=== PATIENT | male | born 1955 | race Caucasian/White ===

== ENCOUNTER 2016-05-01 14:35 | Inpatient (IN) | payer OTHER ==
--- NOTE | 2016-05-01 17:11 | PDOC ---
History of Present Illness - General Chief Complaint: Pain Stated Complaint: LOWER EXT BLOCKAGE, ADMIT (PCP SENT) Time Seen by Provider: 05/01/16 16:28 History Source: Patient Exam Limitations: No Limitations - History of Present Illness Initial Comments: 05/01/16 17:04 HPI: This 60 year old male with c/o lower extremeties weakness and "poor flow" to his legs comes to the ER on the referral from Dr. Rogers to be admitted for surgery? Chief Compliant:b.l le weakness PHM: PVD, FH: Pt has not recently traveled outside the country in the last 30 days. Pt has not been in contact with people who have traveled out of the country, in contact with people who have been ill with fever, n, v, d. SH: smoking use: + current every day smoker. illicit drug use: NONE alcohol use: NONE PSH: Home med use noted on JUN Allergies:nka Immunizations: PCP: dr. whitley Past History - Past Medical History Allergies/Adverse Reactions: Allergies Allergy/AdvReac Type Severity Reaction Status Date / Time No Known Allergies Allergy Verified 05/01/16 14:43 Home Medications: Ambulatory Orders Naproxen [Naprosyn -] 500 mg PO BID PRN #14 tablet 06/23/15 Oxycodone HCl/Acetaminophen [Percocet 10-325 mg Tablet -] 1 - 2 tab PO Q6H PRN 06/23/15 COPD: Yes - Surgical History Abdominal Surgery: Yes (HERNIA) - Psycho/Social/Smoking Cessation Hx Anxiety: No Suicidal Ideation: No Smoking History: Current every day smoker Number of Cigarettes Smoked Daily: 40 Information on smoking cessation initiated: No 'Breaking Loose' booklet given: 06/23/15 Hx Alcohol Use: No Drug/Substance Use Hx: No Substance Use Type: None Review of Systems - Review of Systems Able to Perform ROS?: Yes Comments:: 05/01/16 17:14 General statement: I have to be admitted for my left leg that is cool Hematology: neg history of bleeding/blood thinners Skin: Neg for lesions, rash, bruising. left leg cool to touch HEENT: Neg symptoms Respiratory: Neg SOB or difficulty in breathing Cardiac: Neg chest pain GI: Neg pain, n/v : Neg problems on voiding MS: Neg for joint pain/stiffness, no edema Neuro: Neg for LOC, weakness, Endocrine: Neg for excess thirst/hunger, cold/heat intolerance, excess sweating Allergies: Neg for allergies *Physical Exam - Vital Signs Last Vital Signs Temp Pulse Resp BP Pulse Ox 97.7 F 112 H 20 117/68 97 05/01/16 14:39 05/01/16 14:39 05/01/16 14:39 05/01/16 14:39 05/01/16 14:39 - Physical Exam Comments: 05/01/16 17:19 General Appearance: This thin 60 year old male is w/ c/o b/l le pain and cool to touch legs. V/S: hemodynamically stable, afebrile Skin: WNL of pt's skin color, no signs of pallor, mottling, cyanosis Head:symmetrical Eyes: EOM's intact, PERRLA Ears: denies pain Nose: patent Throat: lips, teeth, gums, tongue, buccal mucos pink and moist Lungs: Chest symmetry equal. Cap refill <3 seconds. Lung sounds clear Cardiac: PMI at R 4MCL space, pos S1 and S2, regular rate. Abdomen: Soft, round, nontender : Not observed Muscularskeletal: Gait steady, ambulated in to ER, no edema +PMS Neuro: AAOx3, cognitively intact, speech clear and appropriate. ED Treatment Course - LABORATORY CBC & Chemistry Diagram: 05/01/16 16:56 05/01/16 16:56 - RADIOLOGY Radiology Studies Ordered: Category Date Time Status CHEST PA & LAT [RAD] Stat Radiology 05/01/16 16:30 Ordered Medical Decision Making - Medical Decision Making 05/01/16 17:20 Patient was initially seen and examined. Patient is stating he was told to come down per Dr. Rogers for admission to have an angiogram tomorrow. He is complaining of left lower extremity coolness to his leg. Several times we have attempted to start his workup however the patient has been found outside having a cigarette. We explained that he cannot be going outside and he needs to remain inside while we can complete his workup. A/P Left leg poor flow 1. labs 2. ua 3. ekg 4. cxr 5 pt/ptt 6. speak with dr. rogers, vascular 7 admission 05/01/16 17:[address] rogers who is in hospital and see pt requesting a ct of left leg order placed. spoke with dr. whitley who asks to place pt under dr. bey for admission to med surg. *DC/Admit/Observation/Transfer Diagnosis at time of Disposition: Lower extremity pain, left - Discharge Dispostion Condition at time of disposition: Guarded Admit: Yes - Referrals Referrals: David Rogers MD [Primary Care Provider] -
[2016-05-01 17:21] LABS: INR 1.12 (0.82-1.09); PROTHROMBIN TIME (PATIENT) 12.3 SEC (9.98-11.88)
[2016-05-01 17:22] LABS: BASOPHIL 0.8 % (0-2.0); EOSINOPHIL 1.3 % (0-4.5); MCH 33.8 pg (25.7-33.7); MCHC 34.4 g/dl (32.0-35.9); MEAN CELL VOLUME 98.2 fl (80-96); MEAN PLT VOLUME 8.6 fl (7.5-11.1); NEUTROPHILS 60.7 % (42.8-82.8); PLATELET COUNT 274 K/MM3 (134-434); WHITE BLOOD COUNT 9.1 K/mm3 (4.0-10.0)
[2016-05-01 17:24] LABS: ACTIVATED PTT 32.8 SECONDS (26.9-34.4)
--- NOTE | 2016-05-01 17:41 | CONSULT ---
Consult - Alcohol/Substance Use Hx Alcohol Use: No - Smoking History Smoking history: Current every day smoker Aproximately how many cigarettes per day: 40 Home Medications - Allergies Allergies/Adverse Reactions: Allergies Allergy/AdvReac Type Severity Reaction Status Date / Time No Known Allergies Allergy Verified 05/01/16 14:43 - Home Medications Home Medications: Ambulatory Orders Naproxen [Naprosyn -] 500 mg PO BID PRN #14 tablet 06/23/15 Oxycodone HCl/Acetaminophen [Percocet 10-325 mg Tablet -] 1 - 2 tab PO Q6H PRN 06/23/15 Physical Exam Vital Signs: Vital Signs Temperature 97.7 F 05/01/16 14:39 Pulse Rate 112 H 05/01/16 14:39 Respiratory Rate 20 05/01/16 14:39 Blood Pressure 117/68 05/01/16 14:39 O2 Sat by Pulse Oximetry (%) 97 05/01/16 14:39 Assessment/Plan Vascular Surgery 60 year old male comes into office today with coolness in left leg. Outpt Ultrasound of his legs showed bilateral lower ext monophasic flow. Pt is a current smoker. Chief Compliant:gavin ribeiro PHM: PVD, FH: Pt has not recently traveled outside the country in the last 30 days. Pt has not been in contact with people who have traveled out of the country, in contact with people who have been ill with fever, n, v, d. SH: smoking use: + current every day smoker. illicit drug use: NONE alcohol use: NONE PSH: Home med use noted on JUN Allergies:nka Immunizations: PCP: dr. whitley Past History - Past Medical History Allergies/Adverse Reactions: Allergies Allergy/AdvReac Type Severity Reaction Status Date / Time No Known Allergies Allergy Verified 05/01/16 14:43 Home Medications: Ambulatory Orders Naproxen [Naprosyn -] 500 mg PO BID PRN #14 tablet 06/23/15 Oxycodone HCl/Acetaminophen [Percocet 10-325 mg Tablet -] 1 - 2 tab PO Q6H PRN 06/23/15 PE Head - NC/AT Lung - CTA Heart - RRR abd - soft,nt,nd ext - warm, pink, left leg warm, no palpable pulses. A/P Bilateral lower ext claudication 1. CTA of aorta, bilateral lower ext runoff 2. smoking cessation 3. will need angiogram in am. David Mednoza DO
[2016-05-01 17:43] LABS: ANION GAP 5 (8-16); BILIRUBIN,TOTAL 0.7 mg/dL (0.2-1.0); CALCIUM 8.8 mg/dL (8.5-10.1); CO2 30 mmol/L (21-32); CREATININE 0.9 mg/dL (0.7-1.3); GLUCOSE,RANDOM 107 mg/dL (74-106); SGOT/AST 16 U/L (15-37); SGPT/ALT 18 U/L (12-78); TOT PROT 6.9 g/dl (6.4-8.2)
[2016-05-01 17:44] LABS: ALK PHOS 85 U/L (45-117)
[2016-05-01 17:51] LABS: URINE APPEARANCE CLEAR; URINE BILIRUBIN NEGATIVE (NEGATIVE); URINE BLOOD NEGATIVE (NEGATIVE); URINE COLOR YELLOW; URINE GLUCOSE (UA) NEGATIVE (NEGATIVE); URINE KETONE TRACE (NEGATIVE); URINE LEUK ESTERASE NEGATIVE (NEGATIVE); URINE NITRITE NEGATIVE (NEGATIVE); URINE UROBILINOGEN NEGATIVE E.U./dl (0.2-1.0)
[2016-05-01 17:58] LABS: URINE PROTEIN 1+ (NEGATIVE)
[2016-05-01 18:10] LABS: URINE MUCUS RARE; URINE RBC 11 /hpf (0-3); URINE WBC 1 /hpf (3-5)
[2016-05-01] MEDS ORDERED: DOCUSATE SODIUM 100 MG CAPSULE (FP) PO PRN (18:57)
[2016-05-01] MEDS ORDERED: oxyCODONE HCL 5 MG TABLET PO PRN (18:57)
[2016-05-01] MEDS ORDERED: ALPRAZolam 2 MG TABLET PO PRN (18:58)
[2016-05-01] MEDS: HEPARIN NA (PORCINE) 5,000 UNITS/ML 1ML VIAL SQ SCH ×2 (22:11→22:12)
[2016-05-01] MEDS: NICOTINE 21 MG/24 HOURS TOPICAL PATCH TD SCH (22:11)
[2016-05-02] MEDS ORDERED: oxyCODONE HCL 5 MG TABLET ONE (03:34)
[2016-05-02] MEDS ORDERED: ALPRAZolam 2 MG TABLET ONE (03:34)
[2016-05-02 05:58] VITALS: BMI 12.8
--- NOTE | 2016-05-02 11:14 | HP ---
Admitting History and Physical - Primary Care Physician PCP: Wen Tompkins - Admission Chief Complaint: LEG WEAKNESS History of Present Illness: 60 Y/O MALE WITH PAD PREVIOUS RIGHT LOWER EXTREMITY ANGIO/CATH 2 YEARS AGO PRESENTS WITH LEFT LOWER EXTREMITY WEAKNESS AND PAIN. History Source: Patient - Past Medical History Cardiovascular: Yes: Other - Smoking History Smoking history: Current every day smoker Have you smoked in the past 12 months: Yes Aproximately how many cigarettes per day: 40 - Alcohol/Substance Use Hx Alcohol Use: No Home Medications - Allergies Allergies/Adverse Reactions: Allergies Allergy/AdvReac Type Severity Reaction Status Date / Time No Known Allergies Allergy Verified 05/01/16 14:43 - Home Medications Home Medications: Ambulatory Orders Naproxen [Naprosyn -] 500 mg PO BID PRN #14 tablet 06/23/15 Oxycodone HCl/Acetaminophen [Percocet 10-325 mg Tablet -] 1 - 2 tab PO Q6H PRN 06/23/15 Alprazolam [Xanax] 2 mg PO TID 05/02/16 Review of Systems - Review of Systems Constitutional: reports: No Symptoms Eyes: reports: No Symptoms HENT: reports: No Symptoms Neck: reports: No Symptoms Cardiovascular: reports: No Symptoms Respiratory: reports: No Symptoms Gastrointestinal: reports: No Symptoms Genitourinary: reports: No Symptoms Musculoskeletal: reports: Extremity Pain, Joint Pain, Muscle Pain Integumentary: reports: No Symptoms Neurological: reports: No Symptoms Endocrine: reports: No Symptoms Hematology/Lymphatic: reports: No Symptoms Psychiatric: reports: No Symptoms Physical Examination Vital Signs: Vital Signs Temperature 97.3 F L 05/02/16 08:25 Pulse Rate 77 05/02/16 08:25 Respiratory Rate 18 05/02/16 08:25 Blood Pressure 96/64 05/02/16 08:25 O2 Sat by Pulse Oximetry (%) 92 L 05/02/16 06:03 Constitutional: Yes: Mild Distress Eyes: Yes: WNL HENT: Yes: WNL Neck: Yes: WNL Cardiovascular: Yes: WNL Respiratory: Yes: WNL Gastrointestinal: Yes: WNL Musculoskeletal: Yes: Muscle Weakness Extremities: Yes: WNL Edema: No Peripheral Pulses WNL: Yes Integumentary: Yes: WNL Wound/Incision: Yes: Clean/Dry Neurological: Yes: WNL ...Motor Strength: WNL Psychiatric: Yes: WNL Problem List - Problems (1) Lower extremity pain, left Assessment/Plan: MEDICALLY CLEARED FOR ANGIOGRAM LEFT LOWER EXTREMITY WITH POSSIBLE CATHETERIZATION. HEPARIN IV PAIN CONTROL Code(s): M79.605 - PAIN IN LEFT LEG
[2016-05-02] MEDS: NICOTINE 21 MG/24 HOURS TOPICAL PATCH TD SCH (11:22)
[2016-05-02] MEDS: HEPARIN NA (PORCINE) 5,000 UNITS/ML 1ML VIAL SQ SCH ×2 (11:23→21:31)
--- NOTE | 2016-05-02 11:42 | CONSULT ---
Consult Consult Specialty:: PULM/CCM Referred by:: ADAM Reason for Consultation:: Active smoker / COPD - History of Present Illness Chief Complaint: Poor flow to my legs History of Present Illness: 60 M, with listed medical history. Smoker since the age of 11, normal amount is 3.5 PPD. More recently about 2.5 PPD. Did have a period years ago when he stopped for a little less than a year. Admitted via the ER due to vascular insufficiency in the LE. He denies CP or SOB. He does have symptoms consistent with chronic bronchitis, daily cough with scant/thick sputum. No travel history or sick contacts. No hemoptysis. NO chronic need for steroids or ABX. - History Source History Provided By: Patient Limitations to Obtaining History: No Limitations - Past Medical History Cardio/Vascular: Yes: Other Pulmonary: Yes: Bronchitis, COPD. No: Cancer, Previously Intubated, Pulmonary Embolus, Pulmonary Fibrosis, Sleep Apnea - Alcohol/Substance Use Hx Alcohol Use: No - Smoking History Smoking history: Current every day smoker Have you smoked in the past 12 months: Yes Aproximately how many cigarettes per day: 40 Home Medications - Allergies Allergies/Adverse Reactions: Allergies Allergy/AdvReac Type Severity Reaction Status Date / Time No Known Allergies Allergy Verified 05/01/16 14:43 - Home Medications Home Medications: Ambulatory Orders Naproxen [Naprosyn -] 500 mg PO BID PRN #14 tablet 06/23/15 Oxycodone HCl/Acetaminophen [Percocet 10-325 mg Tablet -] 1 - 2 tab PO Q6H PRN 06/23/15 Alprazolam [Xanax] 2 mg PO TID 05/02/16 Review of Systems - Review of Systems Constitutional: denies: Chills, Fever, Lethargy, Night Sweats, Unintentional Wgt. Loss Eyes: reports: No Symptoms HENT: reports: No Symptoms Neck: reports: No Symptoms Cardiovascular: denies: Chest Pain, Edema, Palpitations, Shortness of Breath Respiratory: denies: Cough, Hemoptysis, Snoring, SOB, SOB on Exertion, Wheezing Gastrointestinal: reports: No Symptoms Genitourinary: reports: No Symptoms Breasts: reports: No Symptoms Reported Musculoskeletal: reports: Extremity Pain, Muscle Cramps Integumentary: reports: No Symptoms Neurological: reports: No Symptoms Endocrine: reports: No Symptoms Hematology/Lymphatic: reports: No Symptoms Psychiatric: reports: No Symptoms Physical Exam Vital Signs: Vital Signs Temperature 97.3 F L 05/02/16 08:25 Pulse Rate 77 05/02/16 08:25 Respiratory Rate 18 05/02/16 08:25 Blood Pressure 96/64 05/02/16 08:25 O2 Sat by Pulse Oximetry (%) 92 L 05/02/16 06:03 Constitutional: Yes: No Distress, Thin Eyes: Yes: Conjunctiva Clear, EOM Intact HENT: Yes: Atraumatic, Normocephalic Neck: Yes: Supple, Trachea Midline Cardiovascular: Yes: Regular Rate and Rhythm Respiratory: Yes: CTA Bilaterally, Cough, Diminished. No: Accessory Muscle Use , Orthopnea, Rales, Rhonchi, SOB, SOB on Exertion, Stridor, Wheezes Gastrointestinal: Yes: Normal Bowel Sounds, Soft Renal/: Yes: WNL Musculoskeletal: Yes: WNL Extremities: Yes: WNL Edema: No Peripheral Pulses WNL: Yes Wound/Incision: Yes: Well Approximated Neurological: Yes: Alert, Oriented ...Motor Strength: WNL Psychiatric: Yes: WNL, Alert, Oriented Imaging - Results Chest X-ray: Report Reviewed, Image Reviewed (Hyperinflated) Problem List - Problems (1) Lower extremity pain, left Code(s): M79.605 - PAIN IN LEFT LEG (2) Bursitis of left elbow Code(s): M70.32 - OTHER BURSITIS OF ELBOW, LEFT ELBOW (3) COPD (chronic obstructive pulmonary disease) Code(s): J44.9 - CHRONIC OBSTRUCTIVE PULMONARY DISEASE, UNSPECIFIED (4) Chronic obstructive bronchitis without exacerbation Code(s): J44.9 - CHRONIC OBSTRUCTIVE PULMONARY DISEASE, UNSPECIFIED (5) Smoker Code(s): F17.200 - NICOTINE DEPENDENCE, UNSPECIFIED, UNCOMPLICATED (6) Malnutrition Code(s): E46 - UNSPECIFIED PROTEIN-CALORIE MALNUTRITION Assessment/Plan PLAN: Brovana BID Albuterol Nebs PRN O2 as needed Monitor off ABX and systemic steroids for now Smoking cessation discussed Outpatient PFTs Will follow There is no Pulmonary contraindication for OR. Thank you. Dr Del Angel
[2016-05-02] MEDS ORDERED: ALBUTEROL SO4 0.083% IH SOL 2.5 MG/3 ML VIAL.NEB. NEB PRN ×2 (11:48→16:37)
--- NOTE | 2016-05-02 11:51 | CON.CARD ---
Consult Consult Specialty:: Cardiology Referred by:: Dr. Murphy Reason for Consultation:: Pre-op cardiac evaluation for peripheral angiogram - History of Present Illness Chief Complaint: Right leg pain, PAD History of Present Illness: 60 yo male smoker with CAD (2 vessel disease per 01/20/12 cardiac cath at [place] -> no PCI was performed), PAD, who was admitted yesterday with reported cold left leg, weakness, and pain. He is currently pending lower extremity peripheral angiogram and intervention. Patient denies chest pain or dyspnea. 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 - History Source History Provided By: Patient Limitations to Obtaining History: No Limitations - Past Medical History Cardio/Vascular: Yes: CAD (2-vessel CAD per 01/20/12 cardiac cath at [place]) Pulmonary: Yes: Bronchitis, COPD. No: Cancer, Previously Intubated, Pulmonary Embolus, Pulmonary Fibrosis, Sleep Apnea - Alcohol/Substance Use Hx Alcohol Use: No - Smoking History Smoking history: Current every day smoker Have you smoked in the past 12 months: Yes Aproximately how many cigarettes per day: 40 Home Medications - Allergies Allergies/Adverse Reactions: Allergies Allergy/AdvReac Type Severity Reaction Status Date / Time No Known Allergies Allergy Verified 05/01/16 14:43 - Home Medications Home Medications: Ambulatory Orders Naproxen [Naprosyn -] 500 mg PO BID PRN #14 tablet 06/23/15 Oxycodone HCl/Acetaminophen [Percocet 10-325 mg Tablet -] 1 - 2 tab PO Q6H PRN 06/23/15 Alprazolam [Xanax] 2 mg PO TID 05/02/16 Vital Signs: Vital Signs Temperature 97.3 F L 05/02/16 08:25 Pulse Rate 77 05/02/16 08:25 Respiratory Rate 18 05/02/16 08:25 Blood Pressure 96/64 05/02/16 08:25 O2 Sat by Pulse Oximetry (%) 92 L 05/02/16 06:03 - Other Data Labs, Other Data: INR, PTT INR 1.12 (0.82-1.09) 05/01/16 16:56 05/02/16 ECG: Sinus rhythm, rate 80 bpm Prior Cardiac Procedures: Cardiac Catheterization (01/20/12 Cardiac catheterization (at [place]): 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 Admitted 05/01/16 with reported cold left leg, weakness, and pain. Currently pending lower extremity peripheral angiogram and intervention. Cardiology consulted for pre-op cardiac evaluation. RECS: Patient does not have any cardiac contraindications to pending peripheral angiography/intervention. Patient may proceed without further cardiac work-up. Will start aspirin 81 mg po daily and atorvastatin 20 mg po daily given known peripheral PAD and CAD. Will follow. Call with questions.
[2016-05-02] MEDS ORDERED: ARFORMOTEROL TARTRATE 15 MCG/2 ML VIAL NEB SCH (12:00)
[2016-05-02] MEDS ORDERED: LIDOCAINE HCL 1%, 10 MG/ML (20ML VIAL) ONE (12:33)
[2016-05-02] MEDS ORDERED: HEPARIN NA (PORCINE) 5,000 UNITS/ML 1ML VIAL ONE ×4 (12:33→15:13)
[2016-05-02] MEDS ORDERED: MIDAZOLAM HCL 2 MG/2 ML SINGLE DOSE VIAL ONE (13:02)
[2016-05-02] MEDS ORDERED: PROPOFOL 20 ML ONE ×2 (13:02)
[2016-05-02] MEDS ORDERED: ceFAZolin SODIUM 1 GM VIAL ONE (13:24)
[2016-05-02] MEDS ORDERED: ceFAZolin SODIUM 1 GM VIAL IVPB ONE (13:25)
[2016-05-02] MEDS ORDERED: ONDANSETRON 4 MG/2 ML VIAL IVPUSH PRN ×2 (13:44→16:37)
[2016-05-02] MEDS ORDERED: LACTATED RINGERS SOLUTION 1,000 ML IV SCH (13:45)
[2016-05-02] MEDS ORDERED: LIDOCAINE HCL 1%, 10 MG/ML (50 mL VIAL) IJ ONE ×3 (13:47)
--- NOTE | 2016-05-02 15:29 | EKG ---
Test Reason : Blood Pressure : / mmHG Vent. Rate : 080 BPM Atrial Rate : 080 BPM P-R Int : 180 ms QRS Dur : 096 ms QT Int : 388 ms P-R-T Axes : 078 086 083 degrees QTc Int : 447 ms NORMAL SINUS RHYTHM NORMAL ECG WHEN COMPARED WITH ECG OF 01-MAY-2016 17:15, CRITERIA FOR ANTERIOR INFARCT ARE NO LONGER PRESENT CRITERIA FOR ANTEROLATERAL INFARCT ARE NO LONGER PRESENT Confirmed by ALEX HERNANDEZ, BRANDAN ([id number]) on 05/02/2016 3:29:02 PM Referred By: CHAVO MONTENEGRO Confirmed By:BRANDAN JOHNSON MD
--- NOTE | 2016-05-02 16:03 | OP ---
Operative Note - Note: Operative Date: 05/02/16 Pre-Operative Diagnosis: Left lower extremity rest pain Operation: Aortogram, LLE angiogram, iliac artery angioplasty, SFA angioplasty with stent placement. Findings: Left iliac artery stent occluded Post-Operative Diagnosis: Same as Pre-op Surgeon: David Mendoza Anesthesia: Fractional Estimated Blood Loss (mls): 75 Operative Report Dictated: Yes
[2016-05-02] MEDS ORDERED: oxyCODONE HCL 5 MG TABLET PO PRN (16:37)
[2016-05-02] MEDS ORDERED: DOCUSATE SODIUM 100 MG CAPSULE (FP) PO PRN (16:37)
[2016-05-02] MEDS ORDERED: CLOPIDOGREL BISULFATE 75 MG TABLET (FP) ONE (16:43)
[2016-05-02] MEDS: CLOPIDOGREL BISULFATE 75 MG TABLET (FP) PO SCH (16:46)
--- NOTE | 2016-05-02 16:54 | EKG ---
Test Reason : Blood Pressure : / mmHG Vent. Rate : 098 BPM Atrial Rate : 098 BPM P-R Int : 200 ms QRS Dur : 082 ms QT Int : 350 ms P-R-T Axes : 082 098 080 degrees QTc Int : 446 ms NORMAL SINUS RHYTHM ANTEROLATERAL INFARCT , AGE UNDETERMINED ABNORMAL ECG NO PREVIOUS ECGS AVAILABLE Confirmed by BRANDAN JOHNSON MD ([id number]) on 05/02/2016 4:54:04 PM Referred By: Confirmed By:BRANDAN JOHNSON MD
[2016-05-02] MEDS: LACTATED RINGERS SOLUTION 1,000 ML IV SCH (17:20)
[2016-05-02] MEDS ORDERED: oxyCODONE HCL 5 MG TABLET PO ONE (18:18)
[2016-05-02] MEDS ORDERED: morphine CARPU-JECT 4 MG/1 ML DISP.SYRIN IVPB PRN (20:52)
[2016-05-02] MEDS: ALPRAZolam 2 MG TABLET PO PRN (21:30)
[2016-05-02] MEDS: ARFORMOTEROL TARTRATE 15 MCG/2 ML VIAL NEB SCH (21:43)
[2016-05-02] MEDS ORDERED: ATORVASTATIN CA 20 MG TABLET (FP) PO SCH ×2 (22:00)
[2016-05-03] MEDS: LACTATED RINGERS SOLUTION 1,000 ML IV SCH (05:56)
[2016-05-03 09:09] LABS: CHOLESTEROL 141 mg/dL (50-200); LDL CHOLESTEROL (ONLY SJRH) 73 mg/dL (5-100)
[2016-05-03] MEDS: ARFORMOTEROL TARTRATE 15 MCG/2 ML VIAL NEB SCH (09:31)
[2016-05-03] MEDS ORDERED: PT OWN MED DRAWER 7, Y5N ONE (09:35)
[2016-05-03] MEDS: HEPARIN NA (PORCINE) 5,000 UNITS/ML 1ML VIAL SQ SCH (09:43)
[2016-05-03] MEDS: CLOPIDOGREL BISULFATE 75 MG TABLET (FP) PO SCH (09:43)
[2016-05-03] MEDS: ALPRAZolam 2 MG TABLET PO PRN (09:52)
[2016-05-03] MEDS ORDERED: NICOTINE 21 MG/24 HOURS TOPICAL PATCH TD SCH ×2 (10:00→11:15)
[2016-05-03] MEDS ORDERED: ASPIRIN COATED 81 MG TABLET.EC PO SCH ×2 (10:00)
[2016-05-03 10:31] VITALS: BP 85/66; PULSE 101; TEMP 97.4
--- NOTE | 2016-05-03 10:50 | PN ---
Progress Note, Physician - Objective Vital Signs: Vital Signs Temperature 97.4 F L 05/03/16 09:20 Pulse Rate 101 H 05/03/16 09:20 Respiratory Rate 20 05/03/16 09:20 Blood Pressure 85/66 05/03/16 09:20 O2 Sat by Pulse Oximetry (%) 92 L 05/03/16 09:20 Cardiovascular: Yes: Regular Rate and Rhythm, S1, S2 Respiratory: Yes: CTA Bilaterally Gastrointestinal: Yes: Normal Bowel Sounds, Soft Edema: No Labs: INR, PTT INR 1.12 (0.82-1.09) 05/01/16 16:56 Problem List - Problems (1) Arterial insufficiency Code(s): I77.1 - STRICTURE OF ARTERY (2) COPD (chronic obstructive pulmonary disease) Code(s): J44.9 - CHRONIC OBSTRUCTIVE PULMONARY DISEASE, UNSPECIFIED (3) Lower extremity pain, left Code(s): M79.605 - PAIN IN LEFT LEG (4) Smoker Code(s): F17.200 - NICOTINE DEPENDENCE, UNSPECIFIED, UNCOMPLICATED Assessment/Plan (1) Lower extremity pain, left Assessment/Plan: MEDICALLY CLEARED FOR ANGIOGRAM LEFT LOWER EXTREMITY WITH POSSIBLE CATHETERIZATION. HEPARIN IV PAIN CONTROL Code(s): M79.605 - PAIN IN LEFT LEG PATIENT DISCHARGED PER VASC SURG PLEASE REFER TO 05/12 DISCHARGE NOTE PASTOR SHEPHERD
[2016-05-03] MEDS ORDERED: ALPRAZolam 2 MG TABLET PO SCH (14:00)
--- NOTE | 2016-05-12 13:09 | DS ---
Physical Examination Vital Signs: Vital Signs Temperature 97.4 F L 05/03/16 09:20 Pulse Rate 101 H 05/03/16 09:20 Respiratory Rate 20 05/03/16 09:20 Blood Pressure 85/66 05/03/16 09:20 O2 Sat by Pulse Oximetry (%) 92 L 05/03/16 09:20 Cardiovascular: Yes: Regular Rate and Rhythm, S1, S2 Respiratory: Yes: CTA Bilaterally Gastrointestinal: Yes: Normal Bowel Sounds, Soft Edema: No Discharge Summary Reason For Visit: LOWER EXTREMITY PAIN, LEFT Hospital Course: DISCHARGE NOTE INTENDED FOR 05/03/16 (1) Lower extremity pain, left Assessment/Plan: APPRECIATE VASC SURG OP NOTE Operative Date: 05/02/16 Pre-Operative Diagnosis: Left lower extremity rest pain Operation: Aortogram, LLE angiogram, iliac artery angioplasty, SFA angioplasty with stent placement. 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
--- NOTE | 2016-05-22 14:02 | OP ---
DATE OF OPERATION: 05/02/2016 PREOPERATIVE DIAGNOSIS: Left lower extremity rest pain. POSTOPERATIVE DIAGNOSIS: Left lower extremity rest pain. PROCEDURE: Aortogram, left lower extremity angiogram, iliac artery angioplasty, superficial femoral artery angioplasty with stent placement. FINDINGS: Left iliac artery stent was occluded. SURGEON: David Pinto MD ANESTHESIA: Fractional. BLOOD LOSS: 75 mL. INDICATIONS: The patient is a 60-year-old male who comes in with left lower extremity rest pain. He has a history of having a left iliac stent placed at [facility]. He now comes in when he had preoperative ultrasound performed showing that the iliac stent was occluded. He had an angiogram with us in the past from the left common femoral artery approach where he had an SFA stenosis there, and now comes back to the operating room after we finished that procedure complaining of some numbness in the leg. We are thinking that the left iliac stent that we just ballooned is now closed, and that he might need to have it re-ballooned, and the SFA stenosis might need to be addressed. Patient was consented for the procedure understanding all risks, benefits, and alternatives and then taken to the operating room. PROCEDURE IN DETAIL: Once in the operating suite, he was placed on the operating table in the supine manner, and the area of the right and left groin were prepped and draped in the sterile surgical manner. Under ultrasound guidance, we were able to visualize the right common femoral vein. Under pulsatile guidance, we visualized the right common femoral artery and 10 mL of 0.5% lidocaine was injected over the artery. We then took a micropuncture needle and punctured the right common femoral artery. A micropuncture wire inserted, and a short 5-Welsh sheath was inserted. We then placed a 0.035 floppy guidewire up into the aorta followed by an Omni Flush catheter. We then shot an angiogram of the aorta. The then shot an aortogram by hand injection which showed that the proximal iliac artery stent was indeed occluded. We then placed a 0.035 stiff guidewire. We were able to negotiate across the stent, and we were able to place a wire in the left common femoral artery. We were able to follow with the Omni Flush catheter. We then shot an angiogram of the left lower extremity showing that there was an SFA stenosis of about 85% in the proximal SFA that was causing his symptoms. At this point, we placed a 0.035 stiff guidewire across the lesion. We brought a 6 x 45 sheath up and over, 5000 units of IV heparin were administered to the patient. We then went ahead and placed a 6 x 4 stent in the SFA, which was ballooned in place using a 5 x [address] out, once that was ballooned and stented, we shot an angiogram of the left lower extremity, and the SFA was now patent. At this point, we now brought our sheath up and over, and we went ahead and used an 8 x 8 balloon and performed angioplasty of the proximal iliac artery stent. Completion angiogram now showed that this proximal stent was patent. Patient instantly felt that the numbness that he had in his left leg was now relived, and the foot was nice and pink. At this point, we brought our sheath up and over, and StarClose device was successfully deployed in the right common femoral artery. Pressure was held for 5 minutes, and there was no bleeding. The area was wet and dried, and Dermabond was placed. The patient tolerated the procedure with no complications. Patient transferred to PACU in stable condition. DAVID PINTO DO [id number]
--- NOTE | 2016-05-31 15:55 | OP ---
DATE OF OPERATION: 05/02/2016 PREOPERATIVE DIAGNOSIS: Left lower extremity rest pain. POSTOPERATIVE DIAGNOSIS: Left lower extremity rest pain. PROCEDURE: Aortogram, left lower extremity angiogram, iliac artery angioplasty, superior mesenteric artery angioplasty with stent placement. FINDINGS: Left iliac artery stent was occluded, proximal SFA severe stenosis. SURGEON: David Pinto MD ANESTHESIA: Fractional. BLOOD LOSS: 75 mL. INDICATIONS: The patient is a 60-year-old male who comes in with left lower extremity pain. He had a stent placed [facility] in the past, and now is occluded. He also has some disease in his SFA. Patient was consented for the procedure understanding all risks, benefits, and alternatives. He was then taken to the operating room. PROCEDURE IN DETAIL: Once in the operating suite, he was placed on the operating table in the supine manner, and the area of the right and left groin were prepped and draped in the sterile surgical manner. We then, under ultrasound guidance, visualized the right common femoral artery, and 10 mL of 0.5% lidocaine was injected there. We then went ahead and punctured the right common femoral artery using our micropuncture needle. A micropuncture wire was placed, and a traditional 5-Persian sheath was placed. We then placed a 0.035 floppy guidewire up into the aorta followed by an Omni Flush catheter. We then shot an angiogram showing that the left common iliac artery stent was occluded. We then placed a 0.035 stiff guidewire into the stent followed by our Omni Flush catheter, and sent the catheter and the wire down to the left common femoral artery. We then shot an angiogram of the left lower extremity showing that the common femoral artery was patent, profunda was patent, but proximal SFA had a 75% to 80% stenosis. The rest of the SFA was patent. The popliteal artery was patent. At this point, we placed a 0.035 stiff guidewire through our the lesion. We took out our Omni Flush catheter, placed a 6 x 45 crossover sheath up and over. We then went ahead and placed a 6 x 4 Bard stent into the SFA, which was ballooned in place using a 6 x [address] out, we brought our crossover sheath up and over. We then went ahead and used an 8 x 8 [place] balloon and performed angioplasty of the proximal left common iliac artery stent. Completion angiogram now showed that the aorta was patent along with the left common iliac artery stent. At this point, we brought our sheath back down and took it out, and StarClose device was successfully deployed in the right common femoral artery. Pressure was held for 5 minutes, and there was no bleeding. The area was wet and dried, and Dermabond was placed. The patient tolerated the procedure with no complications. Patient transferred to PACU in stable condition. DAVID PINTO DO [id number]
== END 2016-05-03 10:25 | disposition home or self-care (01) | DRG 173 ==
LOC: JER 14:35 → JERBED 17:38 → UNDOADMIN 17:38 → JERBED 18:54 → J6S 05-02 05:33
PROVIDERS: ADMIT Family Medicine; ATTEND Family Medicine
PROC: 047Y3ZZ Dilation of Lower Artery, Percutaneous Approach (ICD-10-PCS; 2016-05-02)
PROC: 3E06317 Introduction of Other Thrombolytic into Central Artery, Percutaneous Approach (ICD-10-PCS; 2016-05-02)
PROC: 047L3DZ Dilation of Left Femoral Artery with Intraluminal Device, Percutaneous Approach (ICD-10-PCS; principal; 2016-05-02 12:00)
DX: T82.856A Stenosis of peripheral vascular stent, initial encounter (principal); I73.9 Peripheral vascular disease, unspecified; Y83.8 Other surgical procedures as the cause of abnormal reaction of the patient, or of later complication, without mention of misadventure at the time of the procedure; J44.9 Chronic obstructive pulmonary disease, unspecified; F17.210 Nicotine dependence, cigarettes, uncomplicated; E46 Unspecified protein-calorie malnutrition; Z68.1 Body mass index [BMI] 19.9 or less, adult; I25.10 Atherosclerotic heart disease of native coronary artery without angina pectoris
CPT/HCPCS: 36415; 71020-TC; 75635-TC; 76000-TC; 80053; 80061; 81003; 81015; 83721; 85025; 85610; 85730; 93005; 93010; 94640; 94760; 99283-25; G0463-25; J1644

== ENCOUNTER 2016-05-09 09:51 | Day surgery (SDC) | payer OTHER ==
[2016-05-09 10:15] VITALS: BMI 14.8
[2016-05-09 10:57] LABS: BASOPHIL 0.8 % (0-2.0); EOSINOPHIL 1.5 % (0-4.5); MCHC 34.7 g/dl (32.0-35.9); MEAN CELL VOLUME 97.9 fl (80-96); MEAN PLT VOLUME 7.8 fl (7.5-11.1); NEUTROPHILS 65.9 % (42.8-82.8); PLATELET COUNT 247 K/MM3 (134-434); RDW 13.9 % (11.9-15.9); WHITE BLOOD COUNT 6.7 K/mm3 (4.0-10.0)
[2016-05-09 11:08] LABS: INR 1.12 (0.82-1.09); PROTHROMBIN TIME (PATIENT) 12.4 SEC (9.98-11.88)
[2016-05-09 11:24] LABS: ALBUMIN 3.4 g/dl (3.4-5.0); ANION GAP 7 (8-16); BILIRUBIN,TOTAL 0.4 mg/dL (0.2-1.0); CO2 30 mmol/L (21-32); CREATININE 0.7 mg/dL (0.7-1.3); GLUCOSE,RANDOM 87 mg/dL (74-106); SGOT/AST 14 U/L (15-37); SGPT/ALT 15 U/L (12-78); TOT PROT 6.1 g/dl (6.4-8.2)
[2016-05-09 11:25] LABS: ALK PHOS 78 U/L (45-117)
--- NOTE | 2016-05-09 11:30 | PDOC ---
History of Present Illness - General Chief Complaint: Revisit,Radiology Variance Stated Complaint: PRE-OP (PCP SENT) NEEDS ANGIOGRAM, LT LEG NUMBNESS Time Seen by Provider: 05/09/16 10:20 History Source: Patient Exam Limitations: No Limitations - History of Present Illness Initial Comments: 05/09/16 11:00 60-year-old male sent to the emergency room by Dr. Mendoza for evaluation of arterial occlusion. Patient had a stent placed to his left leg last week by Dr. Mendoza and went today to the clinic for evaluation and had no palpable pulses although extremity was warm. Patient denies leg pain presently but states tingling throbbing pain to his toes have occurred intermittently when he sits or lays down to long. Patient denies any skin discoloration, calf tenderness, shortness of breath, palpitations or chest pain. Patient states is a heavy smoker and although he was told by Dr. Mendoza not to smoke following the procedure patient continued to smoke. Timing/Duration: unsure Severity: moderate Associated Symptoms: reports: denies symptoms Past History - Past Medical History Allergies/Adverse Reactions: Allergies Allergy/AdvReac Type Severity Reaction Status Date / Time No Known Allergies Allergy Verified 05/09/16 10:10 Home Medications: Ambulatory Orders Oxycodone HCl/Acetaminophen [Percocet 10-325 mg Tablet] 1 - 2 tab PO Q6H PRN 02/27 Alprazolam [Xanax] 2 mg PO TID 05/02/16 Aspirin Coated [Ecotrin -] 81 mg PO DAILY tablet.ec 05/03/16 Atorvastatin Ca [Lipitor] 20 mg PO HS #30 tablet 05/03/16 Clopidogrel Bisulfate [Plavix -] 75 mg PO DAILY #30 tablet 05/03/16 COPD: Yes - Surgical History Abdominal Surgery: Yes (HERNIA) - Psycho/Social/Smoking Cessation Hx Anxiety: No Suicidal Ideation: No Smoking History: Former smoker (quit today) Have you smoked in the past 12 months: No Number of Cigarettes Smoked Daily: 40 Information on smoking cessation initiated: No 'Breaking Loose' booklet given: 05/02/16 Hx Alcohol Use: No Drug/Substance Use Hx: No Substance Use Type: None Hx Substance Use Treatment: No Patient Lives Alone: Yes Lives with/in: lives alone Review of Systems - Review of Systems Able to Perform ROS?: Yes Constitutional: No: Symptoms Reported HEENTM: No: Symptoms Reported Respiratory: No: Symptoms reported Cardiac (ROS): No: Symptoms Reported ABD/GI: No: Symptoms Reported : No: Symptoms Reported Musculoskeletal: No: Symptoms Reported Integumentary: No: Symptoms Reported Neurological: Yes: Tingling (lt foot) Hematologic/Lymphatic: Yes: See HPI *Physical Exam - Vital Signs Last Vital Signs Temp Pulse Resp BP Pulse Ox 98.5 F 97 H 20 93/55 96 05/09/16 10:10 05/09/16 10:55 05/09/16 10:10 05/09/16 10:10 05/09/16 10:55 - Physical Exam General Appearance: Yes: Nourished, Appropriately Dressed. No: Apparent Distress HEENT: positive: EOMI, DAVID. negative: Pale Conjunctivae Neck: positive: Supple Respiratory/Chest: positive: Lungs Clear, Normal Breath Sounds. negative: Respiratory Distress, Accessory Muscle Use Cardiovascular: positive: Regular Rhythm, Tachycardia. negative: Murmur Vascular Pulses: Doralis-Pedis (L): 0 (and post tibial) Gastrointestinal/Abdominal: negative: Soft, Tenderness Extremity: positive: Normal Capillary Refill, Normal Inspection, Normal Range of Motion. negative: Tender, Pedal Edema, Calf Tenderness Integumentary: positive: Dry, Warm, Ecchymosis (to anterior lt tibia (midshaft)) Neurologic: positive: Normal Mood/Affect (anxious), Motor Strength 5/5 ( ambulatory) Heart Score/ECG Review - ECG Intrepretation Rhythm: Regular Rhythm (rate 85, no acute findings) ED Treatment Course - LABORATORY CBC & Chemistry Diagram: 05/09/16 10:49 05/09/16 10:49 - ADDITIONAL ORDERS Additional order review: Laboratory Results 05/09/16 10:49 INR 1.12 05/09/16 10:49 RBC 3.63 L D MCV 97.9 H MCHC 34.7 RDW 13.9 MPV 7.8 Neutrophils % 65.9 Lymphocytes % 22.5 Monocytes % 9.3 Eosinophils % 1.5 Basophils % 0.8 - RADIOLOGY Radiology Studies Ordered: Category Date Time Status CHEST X-RAY PORTABLE* [RAD] Stat Radiology 05/09/16 10:42 Completed Medical Decision Making - Medical Decision Making 05/09/16 11:00 Pt here for evaluation of arterial occlusion after having a stent done at Dr. Mendoza and sent here for evaluation likely need an angiogram. I was unable to palpate pedal and posttibial pulses although the extremity was warm and pink. Patient was also noted to have slight tachycardia with oxygen levels ranging anywhere from 90-92 on room air. Patient states has history of COPD and history of anxiety which he did not take his Xanax this morning since he was told to be nothing by mouth. Patient will have labs including preop labs and d-dimer. Patient also given 2 L of oxygen. Patient otherwise comfortable. 05/09/16 12:15 CXR shows no significant findings or acute lung disease. Noted emphysema due to increased interstitial markings and hyperaeration. 05/09/16 13:54 Laboratory Tests 05/09/16 05/09/16 05/09/16 10:49 10:49 10:49 WBC 6.7 Hgb 12.4 D Hct 35.6 D Plt Count 247 Neutrophils % 65.9 INR 1.12 D-Dimer Sodium 135 L Potassium 4.1 Chloride 98 Carbon Dioxide 30 Anion Gap 7 L BUN 8 D Random Glucose 87 Calcium 8.0 L AST 14 L ALT 15 Blood Type 05/09/16 05/09/16 10:49 10:49 WBC Hgb Hct Plt Count Neutrophils % INR D-Dimer 285 H Sodium Potassium Chloride Carbon Dioxide Anion Gap BUN Random Glucose Calcium AST ALT Blood Type B POSITIVE patient ordered for D51/2 ns at 75 mL an hour. Patient also requesting something for his chronic back pain. Patient will be given IV morphine. Attempted to contact Dr. Mendoza to determine ETA for surgery since patient is requiring an angiogram. *DC/Admit/Observation/Transfer Diagnosis at time of Disposition: Arterial insufficiency - Discharge Dispostion Admit: Yes - Referrals Referrals: Tom Butler MD [Primary Care Provider] -
[2016-05-09] MEDS ORDERED: SODIUM CHLORIDE 1,000 ML IV STA (12:14)
[2016-05-09] MEDS ORDERED: morphine CARPU-JECT 2 MG/1 ML DISP.SYRIN IVPUSH ONE (12:55)
[2016-05-09] MEDS ORDERED: DEXTROSE 5%-0.45% SALINE 1,000 ML IV SCH (13:00)
[2016-05-09] MEDS ORDERED: morphine CARPU-JECT 4 MG/1 ML DISP.SYRIN ONE (13:02)
--- NOTE | 2016-05-09 14:10 | EKG ---
Test Reason : Blood Pressure : / mmHG Vent. Rate : 085 BPM Atrial Rate : 085 BPM P-R Int : 160 ms QRS Dur : 084 ms QT Int : 374 ms P-R-T Axes : 079 081 082 degrees QTc Int : 445 ms NORMAL SINUS RHYTHM NORMAL ECG WHEN COMPARED WITH ECG OF 02-MAY-2016 11:29, NO SIGNIFICANT CHANGE WAS FOUND Confirmed by BRANDAN JOHNSON MD ([id number]) on 05/09/2016 2:10:29 PM Referred By: Confirmed By:BRANDAN JOHNSON MD
[2016-05-09] MEDS ORDERED: HEPARIN NA (PORCINE) 5,000 UNITS/ML 1ML VIAL ONE ×3 (14:29→16:44)
[2016-05-09] MEDS ORDERED: LIDOCAINE HCL 1%, 10 MG/ML (20ML VIAL) ONE (14:29)
[2016-05-09] MEDS ORDERED: MIDAZOLAM HCL 2 MG/2 ML SINGLE DOSE VIAL ONE ×2 (15:27→15:36)
[2016-05-09] MEDS ORDERED: PROPOFOL 20 ML ONE (15:41)
[2016-05-09] MEDS ORDERED: ceFAZolin SODIUM 1 GM VIAL ONE (15:45)
[2016-05-09] MEDS ORDERED: PROTAMINE SULFATE 50 MG/5 ML VIAL ONE (17:05)
[2016-05-09] MEDS ORDERED: PROMETHAZINE HCL 25 MG/1 ML VIAL IVPUSH PRN (17:23)
[2016-05-09] MEDS ORDERED: ONDANSETRON 4 MG/2 ML VIAL IVPUSH PRN (17:23)
[2016-05-09] MEDS ORDERED: SODIUM CHLORIDE 1,000 ML IV SCH (17:30)
--- NOTE | 2016-05-09 18:50 | OP ---
Operative Note - Note: Operative Date: 05/09/16 Pre-Operative Diagnosis: Left lower extremity iliac artery angioplasty with stent placement Operation: Aortogram, Left common iliac artery angioplasty with stent placement Findings: left common iliac artery stent occlusion Post-Operative Diagnosis: Same as Pre-op Surgeon: David Mendoza Anesthesia: Fractional Estimated Blood Loss (mls): 75 Operative Report Dictated: Yes
[2016-05-09] MEDS ORDERED: CLOPIDOGREL BISULFATE 75 MG TABLET (FP) ONE (19:08)
[2016-05-09] MEDS: CLOPIDOGREL BISULFATE 75 MG TABLET (FP) PO SCH (19:10)
[2016-05-09] MEDS ORDERED: ONDANSETRON 4 MG/2 ML VIAL ONE (19:21)
[2016-05-09] MEDS: ALPRAZolam 2 MG TABLET PO PRN (20:40)
[2016-05-10 08:57] VITALS: BP 97/66; PULSE 94; TEMP 97.9
[2016-05-10] MEDS: CLOPIDOGREL BISULFATE 75 MG TABLET (FP) PO SCH (09:44)
[2016-05-10] MEDS: ALPRAZolam 2 MG TABLET PO PRN (09:45)
--- NOTE | 2016-05-10 11:21 | HP ---
Admitting History and Physical - Primary Care Physician PCP: Tom Butler - Admission Chief Complaint: PVD History Source: Patient, Medical Record Limitations to Obtaining History: No Limitations - Past Medical History Cardiovascular: Yes: CAD (2-vessel CAD per 01/20/12 cardiac cath at [place]) Pulmonary: Yes: Bronchitis, COPD. No: Cancer, Previously Intubated, Pulmonary Embolus, Pulmonary Fibrosis, Sleep Apnea - Smoking History Smoking history: Former smoker Have you smoked in the past 12 months: Yes Aproximately how many cigarettes per day: 40 If you are a former smoker, when did you quit?: 05/09/16 - Alcohol/Substance Use Hx Alcohol Use: No Home Medications - Allergies Allergies/Adverse Reactions: Allergies Allergy/AdvReac Type Severity Reaction Status Date / Time No Known Allergies Allergy Verified 05/09/16 10:10 - Home Medications Home Medications: Ambulatory Orders Oxycodone HCl/Acetaminophen [Percocet 10-325 mg Tablet] 1 - 2 tab PO Q6H PRN 02/27 Alprazolam [Xanax] 2 mg PO TID 05/02/16 Aspirin Coated [Ecotrin -] 81 mg PO DAILY tablet.ec 05/03/16 Atorvastatin Ca [Lipitor] 20 mg PO HS #30 tablet 05/03/16 Clopidogrel Bisulfate [Plavix -] 75 mg PO DAILY #30 tablet 05/03/16 Review of Systems - Review of Systems Constitutional: denies: Chills, Fever Cardiovascular: denies: Chest Pain Respiratory: denies: SOB Gastrointestinal: denies: Abdominal Pain Genitourinary: reports: Other (C/O URINE HESITANCY BUT URINATED TODAY) Musculoskeletal: reports: Extremity Pain Integumentary: reports: Other (LEG FEELS WARMER) Physical Examination Vital Signs: Vital Signs Temperature 97.9 F 05/10/16 08:57 Pulse Rate 94 H 05/10/16 08:57 Respiratory Rate 20 05/10/16 08:57 Blood Pressure 97/66 05/10/16 08:57 O2 Sat by Pulse Oximetry (%) 90 L 05/09/16 22:30 Constitutional: Yes: Calm Cardiovascular: Yes: Regular Rate and Rhythm, S1, S2 Respiratory: Yes: CTA Bilaterally Gastrointestinal: Yes: Normal Bowel Sounds, Soft Edema: No Labs: CBC, BMP 05/09/16 10:49 05/09/16 10:49 Imaging - Results Chest X-ray: Report Reviewed EKG: Report Reviewed Other: Report Reviewed Problem List - Problems (1) Arterial insufficiency Code(s): I77.1 - STRICTURE OF ARTERY (2) Bursitis of left elbow Code(s): M70.32 - OTHER BURSITIS OF ELBOW, LEFT ELBOW (3) COPD (chronic obstructive pulmonary disease) Code(s): J44.9 - CHRONIC OBSTRUCTIVE PULMONARY DISEASE, UNSPECIFIED (4) Smoker Code(s): F17.200 - NICOTINE DEPENDENCE, UNSPECIFIED, UNCOMPLICATED Assessment/Plan Chief Complaint: Revisit,Radiology Variance Stated Complaint: PRE-OP (PCP SENT) NEEDS ANGIOGRAM, LT LEG NUMBNESS Time Seen by Provider: 05/09/16 10:20 History Source: Patient Exam Limitations: No Limitations - History of Present Illness Initial Comments: 05/09/16 11:00 60-year-old male sent to the emergency room by Dr. Mendoza for evaluation of arterial occlusion. Patient had a stent placed to his left leg last week by Dr. Mendoza and went today to the clinic for evaluation and had no palpable pulses although extremity was warm. Patient denies leg pain presently but states tingling throbbing pain to his toes have occurred intermittently when he sits or lays down to long. Patient denies any skin discoloration, calf tenderness, shortness of breath, palpitations or chest pain. Patient states is a heavy smoker and although he was told by Dr. Mendoza not to smoke following the procedure patient continued to smoke. (1) Arterial insufficiency Code(s): I77.1 - STRICTURE OF ARTERY APPRECIATE VASC SURG POST-OP NOTE -> Operative Date: 05/09/16 Pre-Operative Diagnosis: Left lower extremity iliac artery angioplasty with stent placement Operation: Aortogram, Left common iliac artery angioplasty with stent placement Findings: left common iliac artery stent occlusion Post-Operative Diagnosis: Same as Pre-op Surgeon: David Mendoza Anesthesia: Fractional Estimated Blood Loss (mls): 75 (2) Bursitis of left elbow Code(s): M70.32 - OTHER BURSITIS OF ELBOW, LEFT ELBOW MSK PAIN ON HIGH NARCOTIC PAIN Rx DOSE MORPHINE IV (3) COPD (chronic obstructive pulmonary disease) Code(s): J44.9 - CHRONIC OBSTRUCTIVE PULMONARY DISEASE, UNSPECIFIED ALB NEB PRN (4) Smoker Code(s): F17.200 - NICOTINE DEPENDENCE, UNSPECIFIED, UNCOMPLICATED SMOKING CESSATION ED GIVEN DISCHARGE PLANNING PER VASC SURG PASTOR SHEPHERD
[2016-05-10] MEDS ORDERED: morphine CARPU-JECT 2 MG/1 ML DISP.SYRIN IVPUSH PRN (11:23)
[2016-05-10] MEDS ORDERED: ALBUTEROL SO4 0.083% IH SOL 2.5 MG/3 ML VIAL.NEB. NEB PRN (11:24)
--- NOTE | 2016-05-27 00:03 | OP ---
DATE OF OPERATION: 05/09/2016 PREOPERATIVE DIAGNOSIS: Left lower extremity ischemia. POSTOPERATIVE DIAGNOSIS: Left lower extremity ischemia. PROCEDURE: Aortogram, left common iliac artery angioplasty with stent placement. FINDINGS: Left common iliac artery stent occlusion. SURGEON: David Pinto D.O. ANESTHESIA: Fractional. BLOOD LOSS: 75 mL. INDICATION: The patient is a 60-year-old male that is a current smoker that had a stent in his left common iliac artery placed at [place] some time ago which is now closed. It was decided that he would need to have that opened. Patient was consented for the procedure understanding all risks, benefits, and alternatives and then taken to the operating room. DESCRIPTION OF PROCEDURE: Once in the operating room, he was laid on the operating table in a supine manner, and the area of the right and left groin are prepped and draped in a sterile surgical manner. We then went ahead and under ultrasound guidance visualized the left common femoral artery and 10 mL of lidocaine 1% was injected there. We then took our Micropuncture needle and punctured the left common femoral artery and placed our Micropuncture wire and placed a traditional 6-Filipino sheath. We then went ahead and placed our 0.035 floppy guidewire up into the aorta followed by a [place] catheter. We selected to cannulate through the occluded stent, which was in the proximal left common iliac artery right off the bifurcation, and we were able to place the wire up into the aorta. We then shot an aortogram showing that the origin of the left common iliac artery was occluded. At this point, we went ahead and used a 9 x 3.7 Visipro stent, and using the balloon mounted stent, we placed it in the origin of the left common iliac artery. Once that was done, we shot an angiogram showing that the origin was now patent, and there was good brisk flow going down the left lower extremity. The inflow was now patent. Patient had a palpable left common femoral pulse as well. At this point, we took out our wire and we went ahead and took out our sheath and Starclose device was successfully deployed in the left common femoral artery. for 5 minutes after there was no bleeding. Areas were then dried and Dermabond was placed. Patient tolerated the procedure without complications. Patient was transferred to PACU in stable condition. DAVID PINTO DO [id number]
== END 2016-05-10 13:11 | disposition home or self-care (01) ==
LOC: JER 09:51 → JERBED 17:55 → UNDOADMOB 17:55 → JASUSAT 18:00 → J6S 21:00 → JASUSAT 05-10 13:11
PROVIDERS: ATTEND Surgery Vascular Surgery
PROC: 047D3D6 (ICD-10-PCS; principal; 2016-05-09 12:00)
DX: T82.856A Stenosis of peripheral vascular stent, initial encounter (principal); I70.212 Atherosclerosis of native arteries of extremities with intermittent claudication, left leg; F17.210 Nicotine dependence, cigarettes, uncomplicated
CPT/HCPCS: 37221; 76937; C1877; 36415; 71010-TC; 76001-TC; 80053; 85025; 85379; 85610; 86850; 86900; 86901; 93005; 93010; 94760; 99284-25; J1644

== ENCOUNTER 2017-01-16 12:46 | Inpatient (IN) | payer OTHER ==
[2017-01-16] MEDS ORDERED: morphine CARPU-JECT 4 MG/1 ML DISP.SYRIN IVPUSH ONE ×2 (13:09→14:39)
[2017-01-16] MEDS ORDERED: morphine CARPU-JECT 2 MG/1 ML DISP.SYRIN ONE ×2 (13:20→14:41)
--- NOTE | 2017-01-16 13:26 | PDOC ---
History of Present Illness - General Chief Complaint: Injury Stated Complaint: RIGHT LEG PAIN Time Seen by Provider: 01/16/17 12:58 History Source: Patient Exam Limitations: No Limitations - History of Present Illness Initial Comments: 01/16/17 13:26 61 y.o. M with pmh of COPD, CAD w/ 2 stents, chronic back pain, and PAD w/ stents in both legs presenting s/p injury. Patient states he was changing his pants last night, was on one leg and lost his balance. Patient fell on his right hip and crawled back to bed. He tried to sleep it off and was in significant pain, which brought him into the ED. No head trauma or LOC. Patient denies any numbness, tingling, loss of bladder or bowel fxn. PSH: Stent placement, cardiac cath All: NKDA SH: 2ppd smoker >50 yrs, denies alcohol use, no drugs PCP: Dr. Butler 01/16/17 13:34 Past History - Past Medical History Allergies/Adverse Reactions: Allergies Allergy/AdvReac Type Severity Reaction Status Date / Time No Known Allergies Allergy Verified 01/16/17 13:29 Home Medications: Ambulatory Orders Alprazolam [Xanax] 2 mg PO TID 05/02/16 Aspirin Coated [Ecotrin -] 81 mg PO DAILY tablet.ec 05/03/16 Atorvastatin Ca [Lipitor] 20 mg PO HS #30 tablet 05/03/16 Clopidogrel Bisulfate [Plavix -] 75 mg PO DAILY #30 tablet 05/03/16 COPD: Yes - Surgical History Abdominal Surgery: Yes (HERNIA) - Suicide/Smoking/Psychosocial Hx Smoking History: Former smoker Have you smoked in the past 12 months: Yes Number of Cigarettes Smoked Daily: 40 If you are a former smoker, when did you quit?: 05/09/16 'Breaking Loose' booklet given: 05/09/16 Hx Alcohol Use: No Drug/Substance Use Hx: No Substance Use Type: None Hx Substance Use Treatment: No Review of Systems - Review of Systems Able to Perform ROS?: Yes Comments:: 01/16/17 13:33 GENERAL/CONSTITUTIONAL: No fever or chills. No weakness. HEAD, EYES, EARS, NOSE AND THROAT: No change in vision. No ear pain or discharge. No sore throat. CARDIOVASCULAR: No chest pain or shortness of breath RESPIRATORY: No cough, wheezing, or hemoptysis. GASTROINTESTINAL: No nausea, vomiting, diarrhea or constipation. GENITOURINARY: No dysuria, frequency, or change in urination. MUSCULOSKELETAL: No neck or back pain. +Right hip pain with decreased strength in right leg SKIN: No rash NEUROLOGIC: No headache, vertigo, loss of consciousness, or change in strength/ sensation. ENDOCRINE: No increased thirst. No abnormal weight change HEMATOLOGIC/LYMPHATIC: No anemia, easy bleeding, or history of blood clots. ALLERGIC/IMMUNOLOGIC: No hives or skin allergy. *Physical Exam - Physical Exam Comments: 01/16/17 13:33 GENERAL: Awake, alert, and fully oriented, in mild distress HEAD: No signs of trauma, normocephalic, atraumatic EYES: PERRLA, EOMI, sclera anicteric, conjunctiva clear ENT: Auricles normal inspection, hearing grossly normal, nares patent, oropharynx clear without exudates. Moist mucosa NECK: Normal ROM, supple, no lymphadenopathy, JVD, or masses LUNGS: No distress, speaks full sentences, clear to auscultation bilaterally HEART: Regular rate and rhythm, normal S1 and S2, no murmurs, rubs or gallops, peripheral pulses normal and equal bilaterally. ABDOMEN: Soft, nontender, normoactive bowel sounds. No guarding, no rebound. No masses EXTREMITIES: Normal inspection, Decreased range of motion of right hip/leg, no edema. No clubbing or cyanosis. +Tender to palpation of right hip. Decreased strength of right leg throughout NEUROLOGICAL: Cranial nerves II through XII grossly intact. Normal speech, no focal sensorimotor deficits SKIN: Warm, Dry, normal turgor, no rashes or lesions noted. ED Treatment Course - LABORATORY CBC & Chemistry Diagram: 01/16/17 17:50 01/16/17 17:50 - RADIOLOGY Radiology Studies Ordered: Category Date Time Status HIP & PELVIS-RIGHT [RAD] Stat Radiology 01/16/17 13:07 Ordered Medical Decision Making - Medical Decision Making 01/16/17 13:34 61 y.o. M with pmh of COPD, CAD w/ 2 stents, chronic back pain, and PAD w/ stents in both legs presenting s/p injury. Plan: Right hip x-ray, Pain control 01/16/17 16:51 Right Hip xray- acute hip fracture, Call placed to ortho, awaiting call back 01/16/17 17:30 Ortho evaluated the patient (Dr. Mitchell), Patient to be admitted to Dr. Butler. Call placed to Dr. Butler 01/16/17 18:00 Dr. Butler wants patient to be admitted to Dr. Tompkins. Call placed to Dr. Tompkins *DC/Admit/Observation/Transfer Diagnosis at time of Disposition: Fracture of hip Qualifiers: Encounter type: initial encounter Fracture type: closed Laterality: right Qualified Code(s): S72.001A - Fracture of unspecified part of neck of right femur, initial encounter for closed fracture; S72.001A - Fracture of unspecified part of neck of right femur, initial encounter for closed fracture; S72.001A - Fracture of unspecified part of neck of right femur, initial encounter for closed fracture - Discharge Dispostion Admit: Yes - Referrals Referrals: Tom Butler MD [Staff Physician] -
[2017-01-16 13:29] VITALS: BMI 19.5
--- NOTE | 2017-01-16 15:41 | PDOC ---
Attending Attestation - Resident Resident Name: Myles Saha - ED Attending Attestation I have performed the following: I have examined & evaluated the patient, The case was reviewed & discussed with the resident, I agree w/resident's findings & plan, Exceptions are as noted - HPI HPI: 01/16/17 15:39 61yo M hx COPD, CAD, PAD p/w R hip pain after a fall yesterday. He states he fell onto his R hip while trying to put on his pants on yesterday while standing. Denies HS or LOC. Pain was worse today prompting him to come in to the ED. - Physicial Exam PE: 01/16/17 15:40 GENERAL: Awake, alert, and fully oriented, in no acute distress HEAD: No signs of trauma EYES: PERRLA, EOMI, sclera anicteric, conjunctiva clear ENT: Auricles normal inspection, hearing grossly normal, nares patent, oropharynx clear without exudates. Moist mucosa NECK: Normal ROM, supple, no lymphadenopathy, JVD, or masses LUNGS: Breath sounds equal, clear to auscultation bilaterally. No wheezes, and no crackles HEART: Regular rate and rhythm, normal S1 and S2, no murmurs, rubs or gallops ABDOMEN: Soft, nontender, normoactive bowel sounds. No guarding, no rebound. No masses EXTREMITIES: Normal range of motion, no edema. No clubbing or cyanosis. No cords, erythema, or tenderness NEUROLOGICAL: Normal speech, cranial nerves intact, negative pronator drift, 5/ 5 strength in all 4 extremities, normal sensation to light touch in all 4 extremities, normal cerebellar exam, normal gait, normal reflexes and tone SKIN: Warm, Dry, normal turgor, no rashes or lesions noted. - Medical Decision Making 01/16/17 15:45 61yo M p/w RLE pain s/p fall yesterday. Pt reports pain over lateral aspect of hip, with ROM limited by pain. No leg length discrepancy, pt is NVI. Likely hip fx vs hip contusion -labs -XR -pain control 01/16/17 17:46 XR with intertrochanteric fx, Dr. Mitchell at the bedside. Will need admission for surgical management.
[2017-01-16] MEDS ORDERED: HYDROmorphone HCL CARPU-JECT 1 MG/1 ML DISP.SYRIN IVPUSH ONE ×2 (16:51→20:14)
[2017-01-16] MEDS ORDERED: HYDROmorphone HCL CARPU-JECT 1 MG/1 ML DISP.SYRIN ONE ×2 (16:58→20:15)
[2017-01-16 17:25] LABS: URINE APPEARANCE CLEAR; URINE BILIRUBIN NEGATIVE (NEGATIVE); URINE BLOOD 1+ (NEGATIVE); URINE COLOR LTYELLOW; URINE GLUCOSE (UA) NEGATIVE (NEGATIVE); URINE KETONE NEGATIVE (NEGATIVE); URINE NITRITE NEGATIVE (NEGATIVE); URINE PROTEIN NEGATIVE (NEGATIVE); URINE UROBILINOGEN NEGATIVE mg/dL (0.2-1.0)
--- NOTE | 2017-01-16 17:28 | PN ---
Progress Note (short form) - Note Progress Note: 61 yo M 1 day s/p fall at home. Unable to ambulate. C/o pain in right hip. Poor nutrition, barely eats. Smokes 2 packs a day. Has cardiac stents, is on Plavix and ASA. PE NAD RLE NVI Good ROM right knee, ankle, foot, toes. + pain at the right hip with pressure No shortening, no malrotation, no deformity Xrays Show a right hip intertrochanteric fracture Imp Right Hip IT fracture, needs surgery. Rec Medical Clearance for surgery, Right Hip IM Nail/Gamma Nail Because the pt is on Plavix and ASA we advise waiting 5 days for the surgery to minimize bleeding complications, in addition he has poor nutrition and may have other clotting difficulties We can plan on doing the surgery Friday afternoon, 4 days from now. NPO after midnight Friday Hold Plavix and ASA
[2017-01-16 17:30] LABS: URINE BACTERIA RARE /hpf (NONE SEEN); URINE RBC 1 /hpf (0-3); URINE WBC <1 /hpf (3-5)
[2017-01-16 18:01] LABS: BASOPHIL 0.4 % (0-2.0); EOSINOPHIL 0.3 % (0-4.5); MCH 34.1 pg (25.7-33.7); MCHC 34.3 g/dl (32.0-35.9); MEAN CELL VOLUME 99.6 fl (80-96); MEAN PLT VOLUME 9.3 fl (7.5-11.1); NEUTROPHILS 66.3 % (42.8-82.8); PLATELET COUNT 165 K/MM3 (134-434); RDW 13.3 % (11.9-15.9); WHITE BLOOD COUNT 6.8 K/mm3 (4.0-10.0)
[2017-01-16 18:29] LABS: INR 1.2 (0.82-1.09); PROTHROMBIN TIME (PATIENT) 13.3 SEC (9.98-11.88)
[2017-01-16 18:31] LABS: ALBUMIN 3.6 g/dl (3.4-5.0); ANION GAP 7 (8-16); BILIRUBIN,TOTAL 1.4 mg/dL (0.2-1.0); CALCIUM 8.4 mg/dL (8.5-10.1); CO2 29 mmol/L (21-32); CREATININE 0.6 mg/dL (0.7-1.3); GLUCOSE,RANDOM 95 mg/dL (74-106); SGOT/AST 16 U/L (15-37); SGPT/ALT 22 U/L (12-78); TOT PROT 6.2 g/dl (6.4-8.2)
[2017-01-16 18:32] LABS: ALK PHOS 73 U/L (45-117)
--- NOTE | 2017-01-16 19:13 | PDOC ---
*Physical Exam - Vital Signs Last Vital Signs Temp Pulse Resp BP Pulse Ox 99.1 F 78 18 100/66 98 01/16/17 12:50 01/16/17 12:50 01/16/17 12:50 01/16/17 12:50 01/16/17 12:50 Heart Score/ECG Review #1 General ECG Interpretation: Sinus Rhythm, Normal Rate (77), Normal Intervals, No acute ischemic changes ED Treatment Course - LABORATORY CBC & Chemistry Diagram: 01/16/17 17:50 01/16/17 17:50 - ADDITIONAL ORDERS Additional order review: Laboratory Results 01/16/17 01/16/17 01/16/17 17:50 17:17 17:17 PT with INR 13.30 H INR 1.20 H Sodium 137 Potassium 4.0 Chloride 101 Carbon Dioxide 29 Anion Gap 7 L BUN 8 Creatinine 0.6 L Creat Clearance w eGFR > 60 Random Glucose 95 Calcium 8.4 L Total Bilirubin 1.4 H D AST 16 ALT 22 D Alkaline Phosphatase 73 Total Protein 6.2 L Albumin 3.6 Urine Color Ltyellow Urine Appearance Clear Urine pH 7.0 Urine Protein Negative Urine Glucose (UA) Negative Urine Ketones Negative Urine Blood 1+ H Urine Nitrite Negative Urine Bilirubin Negative Urine Urobilinogen Negative Urine RBC 1 Urine WBC <1 Urine Bacteria Rare 01/16/17 17:50 RBC 4.09 MCV 99.6 H MCHC 34.3 RDW 13.3 MPV 9.3 D Neutrophils % 66.3 Lymphocytes % 17.2 D Monocytes % 15.8 H Eosinophils % 0.3 Basophils % 0.4 - Medications Given in the ED: ED Medications Discontinued Medications Generic Name Dose Route Start Last Admin Trade Name Kiritq PRN Reason Stop Dose Admin Hydromorphone HCl 1 mg 01/16/17 16:51 01/16/17 17:01 Dilaudid Injection - IVPUSH 01/16/17 16:52 1 mg ONCE ONE Administration Morphine Sulfate 4 mg 01/16/17 13:09 01/16/17 13:26 Morphine Injection - IVPUSH 01/16/17 13:10 4 mg ONCE ONE Administration Morphine Sulfate 4 mg 01/16/17 14:39 01/16/17 14:46 Morphine Injection - IVPUSH 01/16/17 14:40 4 mg ONCE ONE Administration *DC/Admit/Observation/Transfer Diagnosis at time of Disposition: Hip fracture Qualifiers: Encounter type: initial encounter Fracture type: closed Laterality: right Qualified Code(s): S72.001A - Fracture of unspecified part of neck of right femur, initial encounter for closed fracture - Referrals Referrals: Tom Butler MD [Staff Physician] - - Patient Instructions - Post Discharge Activity
[2017-01-16] MEDS ORDERED: morphine CARPU-JECT 4 MG/1 ML DISP.SYRIN IVPUSH PRN (21:06)
[2017-01-16] MEDS ORDERED: DOCUSATE SODIUM 100 MG CAPSULE (FP) PO PRN (21:13)
[2017-01-16 21:43] LABS: URINE LEUK ESTERASE Negative (NEGATIVE)
[2017-01-16] MEDS: NICOTINE 21 MG/24 HOURS TOPICAL PATCH TD SCH (21:46)
[2017-01-16] MEDS: ENOXAPARIN NA (PORCINE) 60 MG/0.6 ML DISP.SYRIN SQ SCH (21:46)
[2017-01-16] MEDS: ATORVASTATIN CA 20 MG TABLET (FP) PO SCH (21:47)
[2017-01-16] MEDS: ALPRAZolam 2 MG TABLET PO SCH (21:52)
[2017-01-16] MEDS: SODIUM CHLORIDE 1,000 ML IV SCH (21:59)
[2017-01-16] MEDS: traZODone HCL 150 MG TABLET PO SCH (22:34)
[2017-01-17] MEDS: ALPRAZolam 2 MG TABLET PO SCH ×2 (06:19→08:25)
[2017-01-17] MEDS: morphine CARPU-JECT 2 MG/1 ML DISP.SYRIN IVPUSH PRN ×2 (06:27→12:20)
[2017-01-17 07:53] LABS: BASOPHIL 0.9 % (0-2.0); EOSINOPHIL 1.2 % (0-4.5); MCH 33.6 pg (25.7-33.7); MCHC 33.3 g/dl (32.0-35.9); MEAN CELL VOLUME 100.9 fl (80-96); MEAN PLT VOLUME 9.5 fl (7.5-11.1); NEUTROPHILS 60.8 % (42.8-82.8); PLATELET COUNT 150 K/MM3 (134-434); RDW 13.3 % (11.9-15.9); WHITE BLOOD COUNT 6.1 K/mm3 (4.0-10.0)
[2017-01-17] MEDS: AMINO ACIDS/PROTEIN HYDROLYS 30 ML LIQUID.PKT PO SCH ×2 (08:24→17:58)
[2017-01-17 08:28] LABS: ALBUMIN 3.2 g/dl (3.4-5.0); ANION GAP 6 (8-16); CALCIUM 7.9 mg/dL (8.5-10.1); CO2 30 mmol/L (21-32); CREATININE 0.5 mg/dL (0.7-1.3); GLUCOSE,RANDOM 84 mg/dL (74-106); SGOT/AST 15 U/L (15-37); SGPT/ALT 22 U/L (12-78)
[2017-01-17 08:30] LABS: ALK PHOS 64 U/L (45-117); BILIRUBIN,TOTAL 1.1 mg/dL (0.2-1.0); TOT PROT 5.6 g/dl (6.4-8.2)
--- NOTE | 2017-01-17 09:40 | EKG ---
Test Reason : Blood Pressure : / mmHG Vent. Rate : 077 BPM Atrial Rate : 077 BPM P-R Int : 150 ms QRS Dur : 078 ms QT Int : 376 ms P-R-T Axes : 073 083 081 degrees QTc Int : 425 ms POOR DATA QUALITY, INTERPRETATION MAY BE ADVERSELY AFFECTED NORMAL SINUS RHYTHM WITH SINUS ARRHYTHMIA NORMAL ECG WHEN COMPARED WITH ECG OF 09-MAY-2016 10:52, NONSPECIFIC T WAVE ABNORMALITY NOW EVIDENT IN ANTERIOR LEADS Confirmed by FARRAH WONG MD ([id number]) on 01/17/2017 9:40:18 AM Referred By: Confirmed By:FARRAH WONG MD
[2017-01-17] MEDS: MULTIVITAMINS (DAILY MVI) TABLET (FP) PO SCH (09:43)
[2017-01-17] MEDS: NICOTINE 21 MG/24 HOURS TOPICAL PATCH TD SCH (09:43)
[2017-01-17] MEDS: ENOXAPARIN NA (PORCINE) 60 MG/0.6 ML DISP.SYRIN SQ SCH ×2 (09:44→21:21)
--- NOTE | 2017-01-17 10:07 | PN ---
Progress Note (short form) - Note Progress Note: Ortho Pt seen and examined s/p right IT fx Selected Entries 01/17/17 05:30 Temperature 98.1 F Pulse Rate 72 Respiratory 16 Rate Blood Pressure 102/61 Laboratory Tests 01/17/17 06:45 WBC 6.1 Hgb 13.7 Hct 41.0 Plt Count 150 RLE shortened and ER, decr rom secondary to pain, calf, soft, nt nvi a/p- Right IT fx Risks and benefits were d/w pt Requires right IM gamma nail tentatively scheduled for friday due to ASA and plavix surgical clearance npo after midnight on Friday d/w Dr. Mitchell
--- NOTE | 2017-01-17 12:34 | HP ---
Admitting History and Physical - Primary Care Physician PCP: Wen Tompkins - Admission Chief Complaint: S/P FALL WITH R. HIP FRACTURE History of Present Illness: 61yo M hx COPD, CAD, PAD p/w R hip pain after a fall yesterday. He states he fell onto his R hip while trying to put on his pants on yesterday while standing. Denies HS or LOC. Pain was worse today prompting him to come in to the ED. - Past Medical History Cardiovascular: Yes: CAD (2-vessel CAD per 01/20/12 cardiac cath at [facility]) , HTN Pulmonary: Yes: Bronchitis, COPD. No: Cancer, Previously Intubated, Pulmonary Embolus, Pulmonary Fibrosis, Sleep Apnea - Smoking History Smoking history: Former smoker Have you smoked in the past 12 months: Yes Aproximately how many cigarettes per day: 40 If you are a former smoker, when did you quit?: 05/09/16 - Alcohol/Substance Use Hx Alcohol Use: No Home Medications - Allergies Allergies/Adverse Reactions: Allergies Allergy/AdvReac Type Severity Reaction Status Date / Time No Known Allergies Allergy Verified 01/16/17 13:29 - Home Medications Home Medications: Ambulatory Orders Alprazolam [Xanax] 2 mg PO TID 05/02/16 Aspirin Coated [Ecotrin -] 81 mg PO DAILY tablet.ec 05/03/16 Atorvastatin Ca [Lipitor] 20 mg PO HS #30 tablet 05/03/16 Clopidogrel Bisulfate [Plavix -] 75 mg PO DAILY #30 tablet 05/03/16 Oxycodone HCl/Acetaminophen [Oxycodone-Acetaminophen 5-325] 1 each PO QID PRN Trazodone HCl [Desyrel -] 150 mg PO HS 01/16/17 Review of Systems - Review of Systems Constitutional: reports: Weakness Eyes: reports: No Symptoms HENT: reports: No Symptoms Neck: reports: No Symptoms Cardiovascular: reports: No Symptoms Respiratory: reports: No Symptoms Gastrointestinal: reports: No Symptoms Genitourinary: reports: No Symptoms Breasts: reports: No Symptoms Reported Musculoskeletal: reports: Joint Pain Integumentary: reports: No Symptoms Neurological: reports: No Symptoms Endocrine: reports: No Symptoms Hematology/Lymphatic: reports: No Symptoms Psychiatric: reports: No Symptoms Physical Examination Vital Signs: Vital Signs Temperature 98.5 F 01/17/17 10:29 Pulse Rate 83 01/17/17 10:29 Respiratory Rate 18 01/17/17 10:29 Blood Pressure 104/64 01/17/17 10:29 O2 Sat by Pulse Oximetry (%) 97 01/16/17 21:00 Constitutional: Yes: Mild Distress Eyes: Yes: WNL HENT: Yes: WNL Neck: Yes: WNL Cardiovascular: Yes: WNL Respiratory: Yes: WNL Gastrointestinal: Yes: WNL Renal/: Yes: WNL Musculoskeletal: Yes: Back Pain, Muscle Weakness Extremities: Yes: WNL Edema: No Peripheral Pulses WNL: Yes Integumentary: Yes: WNL Wound/Incision: Yes: Clean/Dry Neurological: Yes: Unsteady Gait ...Motor Strength: RLE Psychiatric: Yes: WNL Labs: CBC, BMP 01/17/17 06:45 01/17/17 06:45 Imaging - Results X-ray: Report Reviewed Problem List - Problems (1) Hip fracture Code(s): S72.009A - FRACTURE OF UNSP PART OF NECK OF UNSP FEMUR, INIT Qualifiers: Encounter type: initial encounter Fracture type: closed Laterality : right Qualified Code(s): S72.001A - Fracture of unspecified part of neck of right femur, initial encounter for closed fracture; S72.001A - Fracture of unspecified part of neck of right femur, initial encounter for closed fracture; S72.001A - Fracture of unspecified part of neck of right femur, initial encounter for closed fracture (2) Arterial insufficiency Code(s): I77.1 - STRICTURE OF ARTERY (3) COPD (chronic obstructive pulmonary disease) Code(s): J44.9 - CHRONIC OBSTRUCTIVE PULMONARY DISEASE, UNSPECIFIED Qualifiers : COPD type: unspecified COPD Qualified Code(s): J44.9 - Chronic obstructive pulmonary disease, unspecified; J44.9 - Chronic obstructive pulmonary disease, unspecified; J44.9 - Chronic obstructive pulmonary disease, unspecified; J44.9 - Chronic obstructive pulmonary disease, unspecified (4) Smoker Code(s): F17.200 - NICOTINE DEPENDENCE, UNSPECIFIED, UNCOMPLICATED Assessment/Plan RIGHT HIP FRACTURE TO OR FOR REPAIR CARDIOLOGY CLEARANCE EKG/ECHO PAIN CONTROL DVT PROPHYLAXIS
--- NOTE | 2017-01-17 12:42 | PN ---
Progress Note (short form) - Note Progress Note: PATIENT'S ECHO AND EKG REVIEWED. PATIENT IS MEDICALLY CLEARED FOR RIGHT HIP SURGERY Problem List - Problems (1) Hip fracture Code(s): S72.009A - FRACTURE OF UNSP PART OF NECK OF UNSP FEMUR, INIT Qualifiers: Encounter type: initial encounter Fracture type: closed Laterality : right Qualified Code(s): S72.001A - Fracture of unspecified part of neck of right femur, initial encounter for closed fracture; S72.001A - Fracture of unspecified part of neck of right femur, initial encounter for closed fracture; S72.001A - Fracture of unspecified part of neck of right femur, initial encounter for closed fracture (2) Arterial insufficiency Code(s): I77.1 - STRICTURE OF ARTERY (3) COPD (chronic obstructive pulmonary disease) Code(s): J44.9 - CHRONIC OBSTRUCTIVE PULMONARY DISEASE, UNSPECIFIED Qualifiers : COPD type: unspecified COPD Qualified Code(s): J44.9 - Chronic obstructive pulmonary disease, unspecified; J44.9 - Chronic obstructive pulmonary disease, unspecified; J44.9 - Chronic obstructive pulmonary disease, unspecified; J44.9 - Chronic obstructive pulmonary disease, unspecified (4) Smoker Code(s): F17.200 - NICOTINE DEPENDENCE, UNSPECIFIED, UNCOMPLICATED
[2017-01-17] MEDS: oxyCODONE HCL 5 MG TABLET PO PRN ×2 (15:05→21:23)
--- NOTE | 2017-01-17 15:47 | CON.CARD ---
Consult Consult Specialty:: Cardiology - History of Present Illness Chief Complaint: S/P Fall with hip fracture History of Present Illness: This is a 61 year old male with an extensive smoking history. 2 1/2 PPD ~ 40 years, COPD, PAD, HTN, and known CAD. He 2 vessel CAD as per a cardiac cath at [facility] treated medically. On 01/16/17 while standing on one leg taking off his pants, he fell backwards and sustained a fracture of his right femoral neck. He denies chest pain, palpitations, and SOB. Echocardiogram 01/17/17: EF 69% Mild to moderate hypokinesis of the basal and mid anteroseptum Borderline RV enlargement with normal function Mild mitral thickening Mild TR RVSP 30 - 40 mmHg EKG NSR with sinus arrhythmia and NSSTTW changes - Past Medical History Cardio/Vascular: Yes: CAD (2-vessel CAD per 01/20/12 cardiac cath at [facility]) , HTN Pulmonary: Yes: Bronchitis, COPD. No: Cancer, Previously Intubated, Pulmonary Embolus, Pulmonary Fibrosis, Sleep Apnea - Alcohol/Substance Use Hx Alcohol Use: No - Smoking History Smoking history: Former smoker Have you smoked in the past 12 months: Yes Aproximately how many cigarettes per day: 40 If you are a former smoker, when did you quit?: 05/09/16 Home Medications - Allergies Allergies/Adverse Reactions: Allergies Allergy/AdvReac Type Severity Reaction Status Date / Time No Known Allergies Allergy Verified 01/16/17 13:29 - Home Medications Home Medications: Ambulatory Orders Alprazolam [Xanax] 2 mg PO TID 05/02/16 Aspirin Coated [Ecotrin -] 81 mg PO DAILY tablet.ec 05/03/16 Atorvastatin Ca [Lipitor] 20 mg PO HS #30 tablet 05/03/16 Clopidogrel Bisulfate [Plavix -] 75 mg PO DAILY #30 tablet 05/03/16 Oxycodone HCl/Acetaminophen [Oxycodone-Acetaminophen 5-325] 1 each PO QID PRN Trazodone HCl [Desyrel -] 150 mg PO HS 01/16/17 Review of Systems Unable to obtain ROS, reason: As per HPI Vital Signs: Vital Signs Temperature 97.5 F L 01/17/17 14:37 Pulse Rate 80 01/17/17 14:37 Respiratory Rate 20 01/17/17 14:37 Blood Pressure 96/56 01/17/17 14:37 O2 Sat by Pulse Oximetry (%) 97 01/17/17 09:00 Constitutional: Yes: Thin HENT: Yes: WNL Respiratory: Yes: Rhonchi (Minimal scattered rhonchi) Gastrointestinal: Yes: Soft Cardiovascular: Yes: Regular Rate and Rhythm (NL S1S2, no MRHG) Edema: No Neurological: Yes: Oriented, Aphasia (Grossly non focal) - Other Data Labs, Other Data: CBC, BMP 01/17/17 06:45 01/17/17 06:45 INR, PTT INR 1.20 (0.82-1.09) H 01/16/17 17:17 Assessment/Plan Preop cardiac evaluation Based on the echocardiogram, CXR, EKG, Labs, and my clinical evaluation, there are no cardiac contraindicaitons to surgery. His very extensive smoking history (and CAD by history) does increase his surgical risk. There is no need to start beta blockers at this time given the current guideline recommendations. If the surgeon requires, Aspirin and Plavix can be held perioperatively since there is no recent history of a coronary stent. Aspirin and Plavix should be restarted when safe to do so from a surgical standpoint. We will follow with you.
[2017-01-17] MEDS: HYDROmorphone HCL CARPU-JECT 2 MG/1 ML DISP.SYRIN IVPB PRN ×2 (17:58→23:49)
[2017-01-17] MEDS: ATORVASTATIN CA 20 MG TABLET (FP) PO SCH (21:19)
[2017-01-17] MEDS: traZODone HCL 150 MG TABLET PO SCH (21:20)
[2017-01-17] MEDS: SODIUM CHLORIDE 1,000 ML IV SCH (23:49)
[2017-01-18] MEDS: HYDROmorphone HCL CARPU-JECT 2 MG/1 ML DISP.SYRIN IVPB PRN ×3 (06:01→18:35)
[2017-01-18] MEDS: AMINO ACIDS/PROTEIN HYDROLYS 30 ML LIQUID.PKT PO SCH ×2 (08:15→17:24)
[2017-01-18] MEDS: MULTIVITAMINS (DAILY MVI) TABLET (FP) PO SCH (09:03)
[2017-01-18] MEDS: NICOTINE 21 MG/24 HOURS TOPICAL PATCH TD SCH (09:04)
[2017-01-18] MEDS: ENOXAPARIN NA (PORCINE) 60 MG/0.6 ML DISP.SYRIN SQ SCH ×2 (09:04→21:02)
[2017-01-18] MEDS: oxyCODONE HCL 5 MG TABLET PO PRN ×3 (09:23→22:41)
--- NOTE | 2017-01-18 10:19 | PN ---
Progress Note, Physician Chief Complaint: AWAKE ALERT FEELING BETTER AWAITING SURGERY - Current Medication List Current Medications: Active Medications Amino Acids (Prosource No Carb Liquid Pkt) 30 ml PO BID@0800,1730 [facility] Last Admin: 01/18/17 08:15 Dose: 30 ml Atorvastatin Calcium (Lipitor -) 20 mg PO HS [facility] Last Admin: 01/17/17 21:19 Dose: 20 mg Docusate Sodium (Colace -) 100 mg PO BID PRN PRN Reason: CONSTIPATION Last Admin: 01/18/17 09:23 Dose: 100 mg Enoxaparin Sodium (Lovenox -) 50 mg SQ Q12H [facility] Last Admin: 01/18/17 09:04 Dose: 50 mg Hydromorphone HCl (Dilaudid Injection -) 2 mg IVPB Q6H PRN PRN Reason: PAIN Last Admin: 01/18/17 06:01 Dose: 2 mg Sodium Chloride (Normal Saline -) 1,000 mls @ 75 mls/hr IV ASDIR [facility] Last Admin: 01/17/17 23:49 Dose: 75 mls/hr Multivitamins/Minerals/Vitamin C (Tab-A-Vit -) 1 tab PO DAILY [facility] Last Admin: 01/18/17 09:03 Dose: 1 tab Nicotine (Nicoderm Patch -) 21 mg TD DAILY [facility] Last Admin: 01/18/17 09:04 Dose: 21 mg Oxycodone HCl (Roxicodone -) 15 mg PO Q6H PRN PRN Reason: PAIN Last Admin: 01/18/17 09:23 Dose: 15 mg Trazodone HCl (Desyrel -) 150 mg PO [facility] Last Admin: 01/17/17 21:20 Dose: 150 mg - Objective Vital Signs: Vital Signs Temperature 98.1 F 01/18/17 08:33 Pulse Rate 101 H 01/18/17 08:33 Respiratory Rate 18 01/18/17 09:00 Blood Pressure 107/57 01/18/17 08:33 O2 Sat by Pulse Oximetry (%) 97 01/18/17 09:00 Constitutional: Yes: Mild Distress Eyes: Yes: WNL HENT: Yes: WNL Neck: Yes: WNL Cardiovascular: Yes: WNL Respiratory: Yes: WNL Gastrointestinal: Yes: WNL Genitourinary: Yes: WNL Musculoskeletal: Yes: Joint Stiffness, Joint Swelling, Muscle Pain, Muscle Weakness Extremities: Yes: Other Edema: No Peripheral Pulses WNL: Yes Integumentary: Yes: WNL Wound/Incision: Yes: Clean/Dry Neurological: Yes: Weakness ...Motor Strength: LLE, RLE Psychiatric: Yes: WNL Labs: CBC, BMP 01/17/17 06:45 01/17/17 06:45 INR, PTT INR 1.20 (0.82-1.09) H 01/16/17 17:17 Problem List - Problems (1) Hip fracture Code(s): S72.009A - FRACTURE OF UNSP PART OF NECK OF UNSP FEMUR, INIT Qualifiers: Encounter type: initial encounter Fracture type: closed Laterality : right Qualified Code(s): S72.001A - Fracture of unspecified part of neck of right femur, initial encounter for closed fracture; S72.001A - Fracture of unspecified part of neck of right femur, initial encounter for closed fracture; S72.001A - Fracture of unspecified part of neck of right femur, initial encounter for closed fracture (2) Arterial insufficiency Code(s): I77.1 - STRICTURE OF ARTERY (3) COPD (chronic obstructive pulmonary disease) Code(s): J44.9 - CHRONIC OBSTRUCTIVE PULMONARY DISEASE, UNSPECIFIED Qualifiers : COPD type: unspecified COPD Qualified Code(s): J44.9 - Chronic obstructive pulmonary disease, unspecified; J44.9 - Chronic obstructive pulmonary disease, unspecified; J44.9 - Chronic obstructive pulmonary disease, unspecified; J44.9 - Chronic obstructive pulmonary disease, unspecified (4) Smoker Code(s): F17.200 - NICOTINE DEPENDENCE, UNSPECIFIED, UNCOMPLICATED Assessment/Plan RIGHT HIP FRACTURE TO OR FOR REPAIR CARDIOLOGY CLEARANCE EKG/ECHO PAIN CONTROL DVT PROPHYLAXIS
[2017-01-18] MEDS ORDERED: ALBUTEROL SO4 2.5/IPRATROPIUM 0.5 INH SOL 3 ML VIAL.NEB. NEB PRN (11:48)
--- NOTE | 2017-01-18 13:48 | PN ---
Progress Note (short form) - Note Progress Note: PULMONARY CONSULTATION DICTATED 01/18/17 IMP COPD R HIP FX S/P MECHANICAL FALL ASHD PVD PULMONARY HTN SMOKER PLAN NASAL O2 PRN INHALED BRONCHODILATORS PRN DVT PROPHYLAXIS YEARLY LOW DOSE CHEST CT FOR LUNG CANCER SCREENING SMOKING CESSATION COUNSELED PFTS OUTPATIENT AT THIS TIME THERE ARE NO PULMONARY CONTRAINDICATION FOR SURGERY DR CASTRO Problem List - Problems (1) Hip fracture Code(s): S72.009A - FRACTURE OF UNSP PART OF NECK OF UNSP FEMUR, INIT Qualifiers: Encounter type: initial encounter Fracture type: closed Laterality : right Qualified Code(s): S72.001A - Fracture of unspecified part of neck of right femur, initial encounter for closed fracture; S72.001A - Fracture of unspecified part of neck of right femur, initial encounter for closed fracture; S72.001A - Fracture of unspecified part of neck of right femur, initial encounter for closed fracture (2) Arterial insufficiency Code(s): I77.1 - STRICTURE OF ARTERY (3) COPD (chronic obstructive pulmonary disease) Code(s): J44.9 - CHRONIC OBSTRUCTIVE PULMONARY DISEASE, UNSPECIFIED Qualifiers : COPD type: unspecified COPD Qualified Code(s): J44.9 - Chronic obstructive pulmonary disease, unspecified; J44.9 - Chronic obstructive pulmonary disease, unspecified; J44.9 - Chronic obstructive pulmonary disease, unspecified; J44.9 - Chronic obstructive pulmonary disease, unspecified (4) Chronic obstructive bronchitis without exacerbation Code(s): J44.9 - CHRONIC OBSTRUCTIVE PULMONARY DISEASE, UNSPECIFIED (5) Lower extremity pain, left Code(s): M79.605 - PAIN IN LEFT LEG (6) Smoker Code(s): F17.200 - NICOTINE DEPENDENCE, UNSPECIFIED, UNCOMPLICATED (7) Pulmonary HTN Code(s): I27.20 - PULMONARY HYPERTENSION, UNSPECIFIED
--- NOTE | 2017-01-18 14:27 | CONS ---
DATE OF CONSULTATION: 01/18/2017 PULMONARY CONSULTATION REFERRING PHYSICIAN: Wen Tompkins MD HISTORY OF PRESENT ILLNESS: The patient is a 61-year-old white male with a past medical history of COPD, PAD, hypertension, ASHD, two-vessel disease on cardiac catheterization treated medically, longstanding history of tobacco use approximately 2 1/2 packs per day for many years, currently still smoking presenting to [facility] status post mechanical fall. The patient states on January 16, 2017 while standing on one leg taking off his pants he tripped. He fell backward and sustained a fracture to the right femoral neck. He denied any loss of consciousness, denies any chest pains or palpitations. He denied any head trauma. He presented to the emergency room and was noted to have right hip fracture. The patient denies shortness of breath at rest and/or exertion, denies any chest pain or palpitations, denies hemoptysis, denies fever, weight loss or night sweats. He denies any history of occupational exposure to chemicals or fumes. PAST MEDICAL HISTORY: Again includes COPD, PAD, status post stenting, ASHD, hypertension. CURRENT MEDICATIONS: Include Lovenox, Desyrel, NicoDerm patch, DuoNeb, Colace, normal saline, Lipitor, Dilaudid, Roxicodone. REVIEW OF SYSTEMS: No orthopnea, no PND, no chest pain, no palpitations, no abdominal pain, positive right lower extremity pain. PHYSICAL EXAMINATION: General: The patient is a thin, white male, awake, alert and in no acute distress. Vitals: The patient is currently afebrile. Blood pressure is 107/57, respiratory rate 18, O2 saturation 97% on room air. HEENT: Examination is normocephalic and atraumatic. Neck: Supple. Heart: Regular with normal S1, S2. Lungs: Diminished breath sounds bilaterally. Abdomen: Soft, bowel sounds positive. Extremities: There is external rotation of the right lower extremity. LABORATORY DATA: WBC 6.1, hemoglobin 13.7, hematocrit 41, platelet count 150, 000. BUN is 8, creatinine 0.5. INR 1.20. Echocardiogram reveals mild pulmonary hypertension with right ventricular systolic pressure of 30-40 mmHg. Chest x- ray revealed hyperinflated lung patrick and no infiltrates or effusions. IMPRESSION: 1. Chronic obstructive pulmonary disease currently clinically stable. 2. Right femoral fracture status post mechanical fall. 3. Arteriosclerotic heart disease. 4. Hypertension. 5. Peripheral arterial disease. PLAN: Nasal O2 p.r.n., inhaled bronchodilators. At this time there ae no pulmonary contraindications to anticipate surgery. Recommend yearly low-dose CT scan of the chest for lung cancer screening. Also, obtain pulmonary function tests as outpatient. Strongly advise and the patient counseled on smoking cessation. DVT prophylaxis. SASHA CASTRO M.D. JUAN [id number] MTDD
--- NOTE | 2017-01-18 16:26 | PN ---
Progress Note, Physician Chief Complaint: Cardiology fu No pain No dyspnea comfortable. - Current Medication List Current Medications: Active Medications Albuterol/Ipratropium (Duoneb -) 1 amp NEB Q6H PRN PRN Reason: SHORTNESS OF BREATH Amino Acids (Prosource No Carb Liquid Pkt) 30 ml PO BID@0800,1730 [facility] Last Admin: 01/18/17 08:15 Dose: 30 ml Atorvastatin Calcium (Lipitor -) 20 mg PO HS [facility] Last Admin: 01/17/17 21:19 Dose: 20 mg Docusate Sodium (Colace -) 100 mg PO BID PRN PRN Reason: CONSTIPATION Last Admin: 01/18/17 09:23 Dose: 100 mg Enoxaparin Sodium (Lovenox -) 50 mg SQ Q12H [facility] Last Admin: 01/18/17 09:04 Dose: 50 mg Hydromorphone HCl (Dilaudid Injection -) 2 mg IVPB Q6H PRN PRN Reason: PAIN Last Admin: 01/18/17 12:34 Dose: 2 mg Sodium Chloride (Normal Saline -) 1,000 mls @ 75 mls/hr IV ASDIR [facility] Last Admin: 01/17/17 23:49 Dose: 75 mls/hr Multivitamins/Minerals/Vitamin C (Tab-A-Vit -) 1 tab PO DAILY [facility] Last Admin: 01/18/17 09:03 Dose: 1 tab Nicotine (Nicoderm Patch -) 21 mg TD DAILY [facility] Last Admin: 01/18/17 09:04 Dose: 21 mg Oxycodone HCl (Roxicodone -) 15 mg PO Q6H PRN PRN Reason: PAIN Last Admin: 01/18/17 16:05 Dose: 15 mg Trazodone HCl (Desyrel -) 150 mg PO HS [facility] Last Admin: 01/17/17 21:20 Dose: 150 mg - Objective Vital Signs: Vital Signs Temperature 98.4 F 01/18/17 15:13 Pulse Rate 75 01/18/17 15:13 Respiratory Rate 16 01/18/17 15:13 Blood Pressure 101/58 01/18/17 15:13 O2 Sat by Pulse Oximetry (%) 97 01/18/17 09:00 Constitutional: Yes: Well Nourished, No Distress Eyes: Yes: Conjunctiva Clear HENT: Yes: Atraumatic, Normocephalic Neck: Yes: Trachea Midline Cardiovascular: Yes: Regular Rate and Rhythm Respiratory: Yes: Regular, CTA Bilaterally Gastrointestinal: Yes: Normal Bowel Sounds Labs: CBC, BMP 01/17/17 06:45 01/17/17 06:45 INR, PTT INR 1.20 (0.82-1.09) H 01/16/17 17:17 Problem List - Problems (1) Hip fracture Code(s): S72.009A - FRACTURE OF UNSP PART OF NECK OF UNSP FEMUR, INIT Qualifiers: Encounter type: initial encounter Fracture type: closed Laterality : right Qualified Code(s): S72.001A - Fracture of unspecified part of neck of right femur, initial encounter for closed fracture; S72.001A - Fracture of unspecified part of neck of right femur, initial encounter for closed fracture; S72.001A - Fracture of unspecified part of neck of right femur, initial encounter for closed fracture (2) Pulmonary HTN Code(s): I27.20 - PULMONARY HYPERTENSION, UNSPECIFIED (3) Arterial insufficiency Code(s): I77.1 - STRICTURE OF ARTERY Assessment/Plan Continue current therapy. At moderate cardiac risk or operation but optimized.
[2017-01-18] MEDS ORDERED: PT OWN MED DRAWER 7, Y5N ONE (21:01)
[2017-01-18] MEDS: traZODone HCL 150 MG TABLET PO SCH (21:02)
[2017-01-18] MEDS: ATORVASTATIN CA 20 MG TABLET (FP) PO SCH (21:02)
[2017-01-18] MEDS: SODIUM CHLORIDE 1,000 ML IV SCH (22:42)
[2017-01-19] MEDS: HYDROmorphone HCL CARPU-JECT 2 MG/1 ML DISP.SYRIN IVPB PRN ×4 (00:47→19:08)
[2017-01-19] MEDS: SODIUM CHLORIDE 1,000 ML IV SCH ×3 (03:57→23:39)
[2017-01-19] MEDS: AMINO ACIDS/PROTEIN HYDROLYS 30 ML LIQUID.PKT PO SCH ×2 (07:58→17:18)
[2017-01-19] MEDS: oxyCODONE HCL 5 MG TABLET PO PRN ×3 (08:38→20:36)
[2017-01-19] MEDS: MULTIVITAMINS (DAILY MVI) TABLET (FP) PO SCH (10:18)
[2017-01-19] MEDS: NICOTINE 21 MG/24 HOURS TOPICAL PATCH TD SCH (10:18)
[2017-01-19] MEDS: ENOXAPARIN NA (PORCINE) 60 MG/0.6 ML DISP.SYRIN SQ SCH (11:00)
--- NOTE | 2017-01-19 11:54 | PN ---
Progress Note, Physician - Current Medication List Current Medications: Active Medications Albuterol/Ipratropium (Duoneb -) 1 amp NEB Q6H PRN PRN Reason: SHORTNESS OF BREATH Amino Acids (Prosource No Carb Liquid Pkt) 30 ml PO BID@0800,1730 [facility] Last Admin: 01/19/17 07:58 Dose: 30 ml Atorvastatin Calcium (Lipitor -) 20 mg PO HS [facility] Last Admin: 01/18/17 21:02 Dose: 20 mg Docusate Sodium (Colace -) 100 mg PO BID PRN PRN Reason: CONSTIPATION Last Admin: 01/18/17 09:23 Dose: 100 mg Enoxaparin Sodium (Lovenox -) 50 mg SQ Q12H [facility] Last Admin: 01/19/17 11:00 Dose: Not Given Hydromorphone HCl (Dilaudid Injection -) 2 mg IVPB Q6H PRN PRN Reason: PAIN Last Admin: 01/19/17 06:43 Dose: 2 mg Sodium Chloride (Normal Saline -) 1,000 mls @ 75 mls/hr IV ASDIR [facility] Last Admin: 01/19/17 03:57 Dose: 75 mls/hr Multivitamins/Minerals/Vitamin C (Tab-A-Vit -) 1 tab PO DAILY [facility] Last Admin: 01/19/17 10:18 Dose: 1 tab Nicotine (Nicoderm Patch -) 21 mg TD DAILY [facility] Last Admin: 01/19/17 10:18 Dose: 21 mg Oxycodone HCl (Roxicodone -) 15 mg PO Q6H PRN PRN Reason: PAIN Last Admin: 01/19/17 08:38 Dose: 15 mg Trazodone HCl (Desyrel -) 150 mg PO [facility] Last Admin: 01/18/17 21:02 Dose: 150 mg - Objective Vital Signs: Vital Signs Temperature 98 F 01/19/17 08:00 Pulse Rate 76 01/19/17 08:00 Respiratory Rate 18 01/19/17 08:00 Blood Pressure 98/56 01/19/17 08:00 O2 Sat by Pulse Oximetry (%) 96 01/19/17 09:00 Labs: CBC, BMP 01/17/17 06:45 01/17/17 06:45 INR, PTT INR 1.20 (0.82-1.09) H 01/16/17 17:17 Problem List - Problems (1) Hip fracture Code(s): S72.009A - FRACTURE OF UNSP PART OF NECK OF UNSP FEMUR, INIT Qualifiers: Encounter type: initial encounter Fracture type: closed Laterality : right Qualified Code(s): S72.001A - Fracture of unspecified part of neck of right femur, initial encounter for closed fracture; S72.001A - Fracture of unspecified part of neck of right femur, initial encounter for closed fracture; S72.001A - Fracture of unspecified part of neck of right femur, initial encounter for closed fracture (2) Arterial insufficiency Code(s): I77.1 - STRICTURE OF ARTERY (3) COPD (chronic obstructive pulmonary disease) Code(s): J44.9 - CHRONIC OBSTRUCTIVE PULMONARY DISEASE, UNSPECIFIED Qualifiers : COPD type: unspecified COPD Qualified Code(s): J44.9 - Chronic obstructive pulmonary disease, unspecified; J44.9 - Chronic obstructive pulmonary disease, unspecified; J44.9 - Chronic obstructive pulmonary disease, unspecified; J44.9 - Chronic obstructive pulmonary disease, unspecified (4) Smoker Code(s): F17.200 - NICOTINE DEPENDENCE, UNSPECIFIED, UNCOMPLICATED
--- NOTE | 2017-01-19 13:17 | PN ---
Progress Note (short form) - Note Progress Note: MEDICALLY CLEARED FOR HIP SURGICAL REPAIR Problem List - Problems (1) Hip fracture Code(s): S72.009A - FRACTURE OF UNSP PART OF NECK OF UNSP FEMUR, INIT Qualifiers: Encounter type: initial encounter Fracture type: closed Laterality : right Qualified Code(s): S72.001A - Fracture of unspecified part of neck of right femur, initial encounter for closed fracture; S72.001A - Fracture of unspecified part of neck of right femur, initial encounter for closed fracture; S72.001A - Fracture of unspecified part of neck of right femur, initial encounter for closed fracture (2) Arterial insufficiency Code(s): I77.1 - STRICTURE OF ARTERY (3) COPD (chronic obstructive pulmonary disease) Code(s): J44.9 - CHRONIC OBSTRUCTIVE PULMONARY DISEASE, UNSPECIFIED Qualifiers : COPD type: unspecified COPD Qualified Code(s): J44.9 - Chronic obstructive pulmonary disease, unspecified; J44.9 - Chronic obstructive pulmonary disease, unspecified; J44.9 - Chronic obstructive pulmonary disease, unspecified; J44.9 - Chronic obstructive pulmonary disease, unspecified (4) Smoker Code(s): F17.200 - NICOTINE DEPENDENCE, UNSPECIFIED, UNCOMPLICATED
--- NOTE | 2017-01-19 13:31 | PN ---
Progress Note, Physician History of Present Illness: PULMONARY ALERT,NAD,-SOB,-CP - Current Medication List Current Medications: Active Medications Albuterol/Ipratropium (Duoneb -) 1 amp NEB Q6H PRN PRN Reason: SHORTNESS OF BREATH Amino Acids (Prosource No Carb Liquid Pkt) 30 ml PO BID@0800,1730 [facility] Last Admin: 01/19/17 07:58 Dose: 30 ml Atorvastatin Calcium (Lipitor -) 20 mg PO [facility] Last Admin: 01/18/17 21:02 Dose: 20 mg Docusate Sodium (Colace -) 100 mg PO BID PRN PRN Reason: CONSTIPATION Last Admin: 01/18/17 09:23 Dose: 100 mg Hydromorphone HCl (Dilaudid Injection -) 2 mg IVPB Q6H PRN PRN Reason: PAIN Last Admin: 01/19/17 13:12 Dose: 2 mg Sodium Chloride (Normal Saline -) 1,000 mls @ 75 mls/hr IV ASDIR [facility] Last Admin: 01/19/17 03:57 Dose: 75 mls/hr Multivitamins/Minerals/Vitamin C (Tab-A-Vit -) 1 tab PO DAILY [facility] Last Admin: 01/19/17 10:18 Dose: 1 tab Nicotine (Nicoderm Patch -) 21 mg TD DAILY [facility] Last Admin: 01/19/17 10:18 Dose: 21 mg Oxycodone HCl (Roxicodone -) 15 mg PO Q6H PRN PRN Reason: PAIN Last Admin: 01/19/17 08:38 Dose: 15 mg Trazodone HCl (Desyrel -) 150 mg PO [facility] Last Admin: 01/18/17 21:02 Dose: 150 mg - Objective Vital Signs: Vital Signs Temperature 98 F 01/19/17 08:00 Pulse Rate 76 01/19/17 08:00 Respiratory Rate 18 01/19/17 08:00 Blood Pressure 98/56 01/19/17 08:00 O2 Sat by Pulse Oximetry (%) 96 01/19/17 09:00 Constitutional: Yes: Calm, Thin Eyes: Yes: WNL HENT: Yes: WNL Neck: Yes: WNL Cardiovascular: Yes: Regular Rate and Rhythm, S1, S2 Respiratory: Yes: Diminished Gastrointestinal: Yes: Normal Bowel Sounds, Soft Extremities: Yes: WNL, External Rotation (RLE) Edema: No Labs: CBC, BMP Problem List - Problems (1) Hip fracture Code(s): S72.009A - FRACTURE OF UNSP PART OF NECK OF UNSP FEMUR, INIT Qualifiers: Encounter type: initial encounter Fracture type: closed Laterality : right Qualified Code(s): S72.001A - Fracture of unspecified part of neck of right femur, initial encounter for closed fracture; S72.001A - Fracture of unspecified part of neck of right femur, initial encounter for closed fracture; S72.001A - Fracture of unspecified part of neck of right femur, initial encounter for closed fracture (2) Arterial insufficiency Code(s): I77.1 - STRICTURE OF ARTERY (3) COPD (chronic obstructive pulmonary disease) Code(s): J44.9 - CHRONIC OBSTRUCTIVE PULMONARY DISEASE, UNSPECIFIED Qualifiers : COPD type: unspecified COPD Qualified Code(s): J44.9 - Chronic obstructive pulmonary disease, unspecified; J44.9 - Chronic obstructive pulmonary disease, unspecified; J44.9 - Chronic obstructive pulmonary disease, unspecified; J44.9 - Chronic obstructive pulmonary disease, unspecified (4) Chronic obstructive bronchitis without exacerbation Code(s): J44.9 - CHRONIC OBSTRUCTIVE PULMONARY DISEASE, UNSPECIFIED (5) Lower extremity pain, left Code(s): M79.605 - PAIN IN LEFT LEG (6) Smoker Code(s): F17.200 - NICOTINE DEPENDENCE, UNSPECIFIED, UNCOMPLICATED (7) Pulmonary HTN Code(s): I27.20 - PULMONARY HYPERTENSION, UNSPECIFIED Assessment/Plan IMP COPD STABLE R HIP FX S/P MECHANICAL FALL ASHD PVD PULMONARY HTN SMOKER PLAN NASAL O2 PRN INHALED BRONCHODILATORS PRN DVT PROPHYLAXIS YEARLY LOW DOSE CHEST CT FOR LUNG CANCER SCREENING SMOKING CESSATION COUNSELED PFTS OUTPATIENT AT THIS TIME THERE ARE NO PULMONARY CONTRAINDICATION FOR SURGERY DR CASTRO Problem List - Problems (1) Hip fracture Code(s): S72.009A - FRACTURE OF UNSP PART OF NECK OF UNSP FEMUR, INIT Qualifiers: Encounter type: initial encounter Fracture type: closed Laterality : right Qualified Code(s): S72.001A - Fracture of unspecified part of neck of right femur, initial encounter for closed fracture; S72.001A - Fracture of unspecified part of neck of right femur, initial encounter for closed fracture; S72.001A - Fracture of unspecified part of neck of right femur, initial encounter for closed fracture (2) Arterial insufficiency Code(s): I77.1 - STRICTURE OF ARTERY (3) COPD (chronic obstructive pulmonary disease) Code(s): J44.9 - CHRONIC OBSTRUCTIVE PULMONARY DISEASE, UNSPECIFIED Qualifiers : COPD type: unspecified COPD Qualified Code(s): J44.9 - Chronic obstructive pulmonary disease, unspecified; J44.9 - Chronic obstructive pulmonary disease, unspecified; J44.9 - Chronic obstructive pulmonary disease, unspecified; J44.9 - Chronic obstructive pulmonary disease, unspecified (4) Chronic obstructive bronchitis without exacerbation Code(s): J44.9 - CHRONIC OBSTRUCTIVE PULMONARY DISEASE, UNSPECIFIED (5) Lower extremity pain, left Code(s): M79.605 - PAIN IN LEFT LEG (6) Smoker Code(s): F17.200 - NICOTINE DEPENDENCE, UNSPECIFIED, UNCOMPLICATED (7) Pulmonary HTN Code(s): I27.20 - PULMONARY HYPERTENSION, UNSPECIFIED
[2017-01-19] MEDS ORDERED: PT OWN MED DRAWER 7, Y5N ONE (21:31)
[2017-01-19] MEDS: traZODone HCL 150 MG TABLET PO SCH (21:32)
[2017-01-19] MEDS: ATORVASTATIN CA 20 MG TABLET (FP) PO SCH (21:32)
[2017-01-20] MEDS: oxyCODONE HCL 5 MG TABLET PO PRN ×4 (02:18→23:27)
[2017-01-20] MEDS: HYDROmorphone HCL CARPU-JECT 2 MG/1 ML DISP.SYRIN IVPB PRN ×2 (06:02→21:08)
[2017-01-20 08:58] LABS: MCH 33.6 pg (25.7-33.7); MCHC 33.2 g/dl (32.0-35.9); MEAN CELL VOLUME 101.2 fl (80-96); MEAN PLT VOLUME 9.1 fl (7.5-11.1); PLATELET COUNT 136 K/MM3 (134-434); RDW 13.1 % (11.9-15.9); WHITE BLOOD COUNT 4.9 K/mm3 (4.0-10.0)
[2017-01-20] MEDS: AMINO ACIDS/PROTEIN HYDROLYS 30 ML LIQUID.PKT PO SCH ×2 (09:10→17:13)
[2017-01-20] MEDS: MULTIVITAMINS (DAILY MVI) TABLET (FP) PO SCH (09:11)
[2017-01-20 09:14] LABS: ALBUMIN 2.7 g/dl (3.4-5.0); ANION GAP 7 (8-16); CALCIUM 7.9 mg/dL (8.5-10.1); CO2 31 mmol/L (21-32); GLUCOSE,RANDOM 86 mg/dL (74-106)
[2017-01-20 09:17] LABS: ALK PHOS 52 U/L (45-117); BILIRUBIN,TOTAL 0.7 mg/dL (0.2-1.0); CREATININE 0.4 mg/dL (0.7-1.3); SGOT/AST 13 U/L (15-37); SGPT/ALT 16 U/L (12-78)
[2017-01-20] MEDS: SODIUM CHLORIDE 1,000 ML IV SCH ×2 (09:33→17:15)
[2017-01-20] MEDS: NICOTINE 21 MG/24 HOURS TOPICAL PATCH TD SCH (09:34)
[2017-01-20 09:48] LABS: INR 1.1 (0.82-1.09); PROTHROMBIN TIME (PATIENT) 12.1 SEC (9.98-11.88)
--- NOTE | 2017-01-20 13:15 | PN ---
Progress Note (short form) - Note Progress Note: Breathing feels OK. No CP or SOB. NAD on RA. Uncomfortable due to his hip. Intake & Output 01/17/17 01/18/17 01/19/17 01/20/17 23:59 23:59 23:59 23:59 Intake Total 1750 2875 2750 650 Output Total 084 988 6821 Balance 1150 2475 1250 650 Last Vital Signs Temp Pulse Resp BP Pulse Ox 98.1 F 66 20 112/60 96 01/20/17 09:47 01/20/17 09:47 01/20/17 09:47 01/20/17 09:47 01/19/17 21:00 Active Medications Albuterol/Ipratropium (Duoneb -) 1 amp NEB Q6H PRN PRN Reason: SHORTNESS OF BREATH Amino Acids (Prosource No Carb Liquid Pkt) 30 ml PO BID@0800,1730 [facility] Last Admin: 01/20/17 09:10 Dose: Not Given Atorvastatin Calcium (Lipitor -) 20 mg PO [facility] Last Admin: 01/19/17 21:32 Dose: 20 mg Docusate Sodium (Colace -) 100 mg PO BID PRN PRN Reason: CONSTIPATION Last Admin: 01/18/17 09:23 Dose: 100 mg Hydromorphone HCl (Dilaudid Injection -) 2 mg IVPB Q6H PRN PRN Reason: PAIN Last Admin: 01/20/17 06:02 Dose: 2 mg Sodium Chloride (Normal Saline -) 1,000 mls @ 75 mls/hr IV ASDIR [facility] Last Admin: 01/20/17 09:33 Dose: 75 mls/hr Multivitamins/Minerals/Vitamin C (Tab-A-Vit -) 1 tab PO DAILY [facility] Last Admin: 01/20/17 09:11 Dose: Not Given Nicotine (Nicoderm Patch -) 21 mg TD DAILY [facility] Last Admin: 01/20/17 09:34 Dose: 21 mg Oxycodone HCl (Roxicodone -) 15 mg PO Q6H PRN PRN Reason: PAIN Last Admin: 01/20/17 08:18 Dose: 15 mg Trazodone HCl (Desyrel -) 150 mg PO [facility] Last Admin: 01/19/17 21:32 Dose: 150 mg Constitutional: Yes: No acute distress Eyes: Yes: WNL HENT: Yes: WNL Neck: Yes: WNL Cardiovascular: Yes: WNL Respiratory: Yes: Clear, no wheezing Gastrointestinal: Yes: WNL Renal/: Yes: WNL Musculoskeletal: Yes: (+) Pain / external rotation of LE Extremities: Yes: WNL Edema: No Peripheral Pulses WNL: Yes Integumentary: Yes: WNL Neurological: Yes: Non-focal Psychiatric: Yes: WNL Labs: Laboratory Results - last 24 hr 01/20/17 01/20/17 01/20/17 07:40 07:40 07:40 WBC 4.9 RBC 3.47 L Hgb 11.6 L D Hct 35.1 L MCV 101.2 H MCH 33.6 MCHC 33.2 RDW 13.1 Plt Count 136 MPV 9.1 PT with INR 12.10 H INR 1.10 Sodium 142 Potassium 4.0 Chloride 104 Carbon Dioxide 31 Anion Gap 7 L BUN 8 Creatinine 0.4 L Creat Clearance w eGFR > 60 Random Glucose 86 Calcium 7.9 L Total Bilirubin 0.7 D AST 13 L ALT 16 D Alkaline Phosphatase 52 Total Protein 5.0 L Albumin 2.7 L Problem List - Problems (1) Hip fracture Code(s): S72.009A - FRACTURE OF UNSP PART OF NECK OF UNSP FEMUR, INIT Qualifiers: Encounter type: initial encounter Fracture type: closed Laterality : right Qualified Code(s): S72.001A - Fracture of unspecified part of neck of right femur, initial encounter for closed fracture; S72.001A - Fracture of unspecified part of neck of right femur, initial encounter for closed fracture; S72.001A - Fracture of unspecified part of neck of right femur, initial encounter for closed fracture (2) Arterial insufficiency Code(s): I77.1 - STRICTURE OF ARTERY (3) COPD (chronic obstructive pulmonary disease) Code(s): J44.9 - CHRONIC OBSTRUCTIVE PULMONARY DISEASE, UNSPECIFIED Qualifiers : COPD type: unspecified COPD Qualified Code(s): J44.9 - Chronic obstructive pulmonary disease, unspecified; J44.9 - Chronic obstructive pulmonary disease, unspecified; J44.9 - Chronic obstructive pulmonary disease, unspecified; J44.9 - Chronic obstructive pulmonary disease, unspecified (4) Chronic obstructive bronchitis without exacerbation Code(s): J44.9 - CHRONIC OBSTRUCTIVE PULMONARY DISEASE, UNSPECIFIED (5) Lower extremity pain, left Code(s): M79.605 - PAIN IN LEFT LEG (6) Smoker Code(s): F17.200 - NICOTINE DEPENDENCE, UNSPECIFIED, UNCOMPLICATED (7) Pulmonary HTN Code(s): I27.20 - PULMONARY HYPERTENSION, UNSPECIFIED PLAN NASAL O2 PRN INHALED BRONCHODILATORS PRN DVT PROPHYLAXIS SMOKING CESSATION COUNSELED PFTS OUTPATIENT SCREENING CHEST CT AN OUTPATIENT AT THIS TIME THERE ARE NO PULMONARY CONTRAINDICATIONS FOR SURGERY DR MONSON
[2017-01-20] MEDS ORDERED: ETOMIDATE 20 MG/10 ML AMPUL IVPUSH ONE (14:06)
[2017-01-20] MEDS ORDERED: ePHEDrine SULFATE 50 MG/1 ML AMPULE ONE (14:06)
[2017-01-20] MEDS ORDERED: SUCCINYLCHOLINE CHLORIDE 200 MG/10 ML VIAL ONE (14:07)
[2017-01-20] MEDS ORDERED: PROPOFOL 20 ML ONE (14:07)
[2017-01-20] MEDS ORDERED: ceFAZolin SODIUM 1 GM VIAL IVPB ONE (14:42)
--- NOTE | 2017-01-20 15:18 | OP ---
Operative Note - Note: Operative Date: 01/20/17 Pre-Operative Diagnosis: right IT hip Fx Operation: right gamma nailing Post-Operative Diagnosis: Same as Pre-op Surgeon: Jerad Mora Anesthesia: General Estimated Blood Loss (mls): 50 Operative Report Dictated: Yes
[2017-01-20] MEDS ORDERED: HYDROmorphone HCL CARPU-JECT 2 MG/1 ML DISP.SYRIN ONE (15:22)
[2017-01-20] MEDS: HYDROmorphone HCL CARPU-JECT 1 MG/1 ML DISP.SYRIN IVPUSH PRN ×4 (15:23→15:54)
[2017-01-20] MEDS ORDERED: LACTATED RINGERS SOLUTION 1,000 ML IV SCH (15:30)
[2017-01-20] MEDS ORDERED: ALBUTEROL SO4 2.5/IPRATROPIUM 0.5 INH SOL 3 ML VIAL.NEB. NEB PRN (15:31)
[2017-01-20] MEDS: ACETAMINOPHEN 1000 MG/100 ML VIAL (NON FORMULARY) IVPB PRN (16:00)
[2017-01-20] MEDS ORDERED: ACETAMINOPHEN INJECTION 100 ML IVPB ONE (16:01)
[2017-01-20] MEDS ORDERED: ONDANSETRON 4 MG/2 ML VIAL IVPUSH PRN (16:03)
[2017-01-20] MEDS ORDERED: PROMETHAZINE HCL 25 MG/1 ML VIAL IVPUSH PRN (16:03)
[2017-01-20] MEDS ORDERED: HYDROmorphone *PCA* 10MG/50ML DISP.SYRIN PCA SCH (16:15)
--- NOTE | 2017-01-20 16:44 | PN ---
Progress Note, Physician Chief Complaint: S/P RIGHT HIP FRACTURE GAMMA NAIL REPAIR ASLEEP POST -OP - Current Medication List Current Medications: Active Medications Acetaminophen (Ofirmev Injection -) 1,000 mg IVPB Q6H PRN PRN Reason: PAIN Stop: 01/21/17 10:08 Albuterol/Ipratropium (Duoneb -) 1 amp NEB Q6H PRN PRN Reason: SHORTNESS OF BREATH Amino Acids (Prosource No Carb Liquid Pkt) 30 ml PO BID@0800,1730 [facility] Atorvastatin Calcium (Lipitor -) 20 mg PO HS [facility] Docusate Sodium (Colace -) 100 mg PO Q12H PRN PRN Reason: CONSTIPATION Enoxaparin Sodium (Lovenox -) 40 mg SQ DAILY [facility] Hydromorphone HCl (Dilaudid Injection -) 2 mg IVPB Q6H PRN PRN Reason: PAIN Hydromorphone HCl (Dilaudid Asl Interpreter -) 0 mg TOOL SUPERVISOR TOOL SUPERVISOR [facility] PRN Reason: Protocol Stop: 01/27/17 16:03 Cefazolin Sodium 1 gm/ (Dextrose) 50 mls @ 100 mls/hr IVPB Q8H-IV [facility] Stop: 01/21/17 17:59 Sodium Chloride (Normal Saline -) 1,000 mls @ 75 mls/hr IV ASDIR [facility] Multivitamins/Minerals/Vitamin C (Tab-A-Vit -) 1 tab PO DAILY [facility] Nicotine (Nicoderm Patch -) 21 mg TD DAILY [facility] Ondansetron HCl (Zofran Injection) 4 mg IVPUSH Q4H PRN PRN Reason: NAUSEA AND/OR VOMITING Stop: 01/21/17 04:04 Oxycodone HCl (Roxicodone -) 15 mg PO Q6H PRN PRN Reason: PAIN Trazodone HCl (Desyrel -) 150 mg PO HS [facility] - Objective Vital Signs: Vital Signs Temperature 98.1 F 01/20/17 09:47 Pulse Rate 66 01/20/17 09:47 Respiratory Rate 20 01/20/17 09:47 Blood Pressure 112/60 01/20/17 09:47 O2 Sat by Pulse Oximetry (%) 96 01/19/17 21:00 Constitutional: Yes: Mild Distress Eyes: Yes: WNL HENT: Yes: WNL Neck: Yes: WNL Cardiovascular: Yes: WNL Respiratory: Yes: CTA Bilaterally, On Nasal O2 Gastrointestinal: Yes: WNL Genitourinary: Yes: WNL Musculoskeletal: Yes: Muscle Weakness Extremities: Yes: WNL Edema: No Peripheral Pulses WNL: Yes Integumentary: Yes: WNL Wound/Incision: Yes: Dressing Dry and Intact Neurological: Yes: WNL ...Motor Strength: RLE Psychiatric: Yes: Other Labs: CBC, BMP 01/20/17 07:40 01/20/17 07:40 INR, PTT INR 1.10 (0.82-1.09) 01/20/17 07:40 Problem List - Problems (1) Hip fracture Code(s): S72.009A - FRACTURE OF UNSP PART OF NECK OF UNSP FEMUR, INIT Qualifiers: Encounter type: initial encounter Fracture type: closed Laterality : right Qualified Code(s): S72.001A - Fracture of unspecified part of neck of right femur, initial encounter for closed fracture; S72.001A - Fracture of unspecified part of neck of right femur, initial encounter for closed fracture; S72.001A - Fracture of unspecified part of neck of right femur, initial encounter for closed fracture (2) Arterial insufficiency Code(s): I77.1 - STRICTURE OF ARTERY (3) COPD (chronic obstructive pulmonary disease) Code(s): J44.9 - CHRONIC OBSTRUCTIVE PULMONARY DISEASE, UNSPECIFIED Qualifiers : COPD type: unspecified COPD Qualified Code(s): J44.9 - Chronic obstructive pulmonary disease, unspecified; J44.9 - Chronic obstructive pulmonary disease, unspecified; J44.9 - Chronic obstructive pulmonary disease, unspecified; J44.9 - Chronic obstructive pulmonary disease, unspecified (4) Smoker Code(s): F17.200 - NICOTINE DEPENDENCE, UNSPECIFIED, UNCOMPLICATED Assessment/Plan DVT PROPHYLAXIS POST-OP [facility] IF NOT HOME CARE WITH PRIME PT EVAL PAIN CONTROL
[2017-01-20] MEDS ORDERED: ceFAZolin SODIUM 1 GM VIAL ONE (17:06)
[2017-01-20] MEDS ORDERED: DEXTROSE 5%-WATER - 50 ML IVPB ONE (17:07)
[2017-01-20] MEDS: CEFAZOLIN 1 GM in DEXTROSE 5%-WATER - 50 ML IVPB SCH (17:13)
[2017-01-20] MEDS ORDERED: PT OWN MED DRAWER 7, Y5N ONE ×2 (17:23→21:06)
[2017-01-20] MEDS ORDERED: CEFAZOLIN (PRE-DOCKED) 50 ML IVPB SCH (18:00)
--- NOTE | 2017-01-20 20:50 | SPEC ---
DATE OF OPERATION: 01/20/2017 OPERATION: Right Gamma nailing. PREOPERATIVE DIAGNOSIS: Right intertrochanteric hip fracture. POSTOPERATIVE DIAGNOSIS: Right intertrochanteric hip fracture. SURGEON: Jerad Mora M.D. ANESTHESIA: General with LMA. CLOSURE: A short Gamma nail with appropriate interlocks. No. 0 Vicryl for fascia, 2-0 for subcutaneous, gareth for skin. ESTIMATED BLOOD LOSS: Approximately 50 mL. COMPLICATIONS: None. CONDITION: Recovery room in stable condition. DESCRIPTION OF OPERATIVE PROCEDURE: The patient was taken to the operating room. Spinal anesthesia was administered by the anesthesiologist. IV antibiotic prophylaxis was administered prior to the case. Patient was fastened to the fracture table with all prominences well padded. The right hip fracture was reduced with confirmation of excellent reduction from the AP and lateral planes using the image intensifier. A small 1-inch incision was made at the greater tip of the greater trochanter. Hemostasis was achieved with Bovie cautery. Sharp dissection was carried through the fascia. The K-wire was drilled from the tip of the greater trochanter past the fracture into the intramedullary canal. Proper placement was confirmed of the AP and lateral planes by using the image intensifier. This was overreamed with a proximal reamer using the tissue protector to protect the soft tissue in the region. A short Gamma nail was then malleted down into place into the intramedullary canal to the appropriate level. Using the outrigger and a small stab incision laterally, a Guidewire was drilled from one aspect of the femur through the femoral neck into the femoral head. Proper placement was confirmed of the AP and lateral planes using image intensifier. The wire was measured for length and was overreamed with a triple reamer and was screwed with the appropriate-length lag screw. Confirmation of appropriate depth was confirmed in the AP and lateral planes by using image intensifier. Traction was reduced. The compression device was used to compress the fracture and a screw was placed from above in a dynamic fashion. Again, using the outrigger and a small stab incision laterally, the distal locking screw was placed by drilling and using an appropriate-sized screw. The outrigger was removed. Confirmation of excellent reduction was confirmed in the AP and lateral planes by using image intensifier with excellent position of the hardware. All incisions were irrigated with copious amounts of irrigation. The fascia was closed with 0 Vicryl, 2-0 for subcutaneous and 3-0 Monocryl subcuticular for skin. A sterile pressure dressing was applied. The patient was awakened from anesthesia and transferred to recovery room in stable condition. No complications. Estimated blood loss less than 100 mL. Estefany [id number]
[2017-01-20] MEDS: traZODone HCL 150 MG TABLET PO SCH (21:08)
[2017-01-20] MEDS: ATORVASTATIN CA 20 MG TABLET (FP) PO SCH (21:08)
[2017-01-21] MEDS: ACETAMINOPHEN 1000 MG/100 ML VIAL (NON FORMULARY) IVPB PRN (00:47)
[2017-01-21] MEDS ORDERED: PT OWN MED DRAWER 7, Y5N ONE ×2 (01:18→09:03)
[2017-01-21] MEDS: CEFAZOLIN 1 GM in DEXTROSE 5%-WATER - 50 ML IVPB SCH ×2 (01:18→09:11)
[2017-01-21] MEDS: HYDROmorphone HCL CARPU-JECT 2 MG/1 ML DISP.SYRIN IVPB PRN ×4 (03:06→21:14)
[2017-01-21] MEDS: oxyCODONE HCL 5 MG TABLET PO PRN ×3 (05:46→18:22)
[2017-01-21 08:37] LABS: MCH 33.9 pg (25.7-33.7); MCHC 33.6 g/dl (32.0-35.9); MEAN CELL VOLUME 100.9 fl (80-96); MEAN PLT VOLUME 9.1 fl (7.5-11.1); PLATELET COUNT 161 K/MM3 (134-434); RDW 13.2 % (11.9-15.9)
[2017-01-21] MEDS: AMINO ACIDS/PROTEIN HYDROLYS 30 ML LIQUID.PKT PO SCH ×2 (08:38→17:07)
--- NOTE | 2017-01-21 08:38 | PN ---
Progress Note (short form) - Note Progress Note: Anesthesia Post op Pt seen and examined S:alert and awake O: Vital Signs Temperature 98.1 F 01/21/17 08:00 Pulse Rate 71 01/21/17 08:00 Respiratory Rate 18 01/21/17 08:00 Blood Pressure 116/61 01/21/17 08:00 O2 Sat by Pulse Oximetry (%) 97 01/20/17 21:00 A/P:s/p Right gamma nail Doing well post op Continue current care Chepe Zapata MD
[2017-01-21 09:00] LABS: ANION GAP 10 (8-16); CALCIUM 8.1 mg/dL (8.5-10.1); CO2 30 mmol/L (21-32); CREATININE 0.6 mg/dL (0.7-1.3); GLUCOSE,RANDOM 79 mg/dL (74-106)
[2017-01-21] MEDS: ENOXAPARIN NA (PORCINE) 40 MG/0.4 ML DISP.SYRIN SQ SCH (09:11)
[2017-01-21] MEDS: MULTIVITAMINS (DAILY MVI) TABLET (FP) PO SCH (09:11)
[2017-01-21] MEDS: NICOTINE 21 MG/24 HOURS TOPICAL PATCH TD SCH (09:11)
[2017-01-21] MEDS: SODIUM CHLORIDE 1,000 ML IV SCH ×2 (09:33→16:25)
[2017-01-21] MEDS ORDERED: ENOXAPARIN NA (PORCINE) 40 MG/0.4 ML DISP.SYRIN SQ SCH (10:00)
--- NOTE | 2017-01-21 12:21 | PN ---
Progress Note, Physician Chief Complaint: AWAKE ALERT IN PHYSICAL THERAPY - Current Medication List Current Medications: Active Medications Albuterol/Ipratropium (Duoneb -) 1 amp NEB Q6H PRN PRN Reason: SHORTNESS OF BREATH Amino Acids (Prosource No Carb Liquid Pkt) 30 ml PO BID@0800,1730 [facility] Last Admin: 01/21/17 08:38 Dose: 30 ml Atorvastatin Calcium (Lipitor -) 20 mg PO HS [facility] Last Admin: 01/20/17 21:08 Dose: 20 mg Docusate Sodium (Colace -) 100 mg PO Q12H PRN PRN Reason: CONSTIPATION Enoxaparin Sodium (Lovenox -) 40 mg SQ DAILY [facility] Last Admin: 01/21/17 09:11 Dose: 40 mg Hydromorphone HCl (Dilaudid Injection -) 2 mg IVPB Q6H PRN PRN Reason: PAIN Last Admin: 01/21/17 09:15 Dose: 2 mg Cefazolin Sodium 1 gm/ (Dextrose) 50 mls @ 100 mls/hr IVPB Q8H-IV [facility] Stop: 01/21/17 17:59 Last Admin: 01/21/17 09:11 Dose: 100 mls/hr Sodium Chloride (Normal Saline -) 1,000 mls @ 75 mls/hr IV ASDIR [facility] Last Admin: 01/21/17 09:33 Dose: 75 mls/hr Multivitamins/Minerals/Vitamin C (Tab-A-Vit -) 1 tab PO DAILY [facility] Last Admin: 01/21/17 09:11 Dose: 1 tab Nicotine (Nicoderm Patch -) 21 mg TD DAILY [facility] Last Admin: 01/21/17 09:11 Dose: 21 mg Oxycodone HCl (Roxicodone -) 15 mg PO Q6H PRN PRN Reason: PAIN Last Admin: 01/21/17 05:46 Dose: 15 mg Trazodone HCl (Desyrel -) 150 mg PO [facility] Last Admin: 01/20/17 21:08 Dose: 150 mg - Objective Vital Signs: Vital Signs Temperature 98.1 F 01/21/17 08:00 Pulse Rate 68 01/21/17 10:40 Respiratory Rate 18 01/21/17 08:00 Blood Pressure 116/61 01/21/17 08:00 O2 Sat by Pulse Oximetry (%) 94 L 01/21/17 10:40 Constitutional: Yes: Moderate Distress Eyes: Yes: WNL HENT: Yes: WNL Neck: Yes: WNL Cardiovascular: Yes: WNL Respiratory: Yes: WNL Gastrointestinal: Yes: WNL Genitourinary: Yes: WNL Musculoskeletal: Yes: Joint Stiffness, Muscle Pain Extremities: Yes: Other Edema: No Peripheral Pulses WNL: Yes Integumentary: Yes: WNL Wound/Incision: Yes: Dressing Dry and Intact Neurological: Yes: Pre-Existing Deficit, Unsteady Gait ...Motor Strength: RLE Psychiatric: Yes: Other Labs: CBC, BMP 01/21/17 07:15 01/21/17 07:15 INR, PTT INR 1.10 (0.82-1.09) 01/20/17 07:40 Problem List - Problems (1) Hip fracture Code(s): S72.009A - FRACTURE OF UNSP PART OF NECK OF UNSP FEMUR, INIT Qualifiers: Encounter type: initial encounter Fracture type: closed Laterality : right Qualified Code(s): S72.001A - Fracture of unspecified part of neck of right femur, initial encounter for closed fracture; S72.001A - Fracture of unspecified part of neck of right femur, initial encounter for closed fracture; S72.001A - Fracture of unspecified part of neck of right femur, initial encounter for closed fracture (2) Arterial insufficiency Code(s): I77.1 - STRICTURE OF ARTERY (3) COPD (chronic obstructive pulmonary disease) Code(s): J44.9 - CHRONIC OBSTRUCTIVE PULMONARY DISEASE, UNSPECIFIED Qualifiers : COPD type: unspecified COPD Qualified Code(s): J44.9 - Chronic obstructive pulmonary disease, unspecified; J44.9 - Chronic obstructive pulmonary disease, unspecified; J44.9 - Chronic obstructive pulmonary disease, unspecified; J44.9 - Chronic obstructive pulmonary disease, unspecified (4) Smoker Code(s): F17.200 - NICOTINE DEPENDENCE, UNSPECIFIED, UNCOMPLICATED Assessment/Plan POD #1 REFUSING SNF WANTS FINANCIAL SECRETARY WITH PT PAIN CONTROL ASA DVT PROPHYLAXIS WITH ELIQUIS
--- NOTE | 2017-01-21 13:32 | PN ---
Progress Note (short form) - Note Progress Note: Ortho Pt seen and examined s/p right IM gamma nail pod #1 Selected Entries 01/21/17 01/21/17 08:00 10:40 Temperature 98.1 F Pulse Rate 68 Respiratory 18 Rate Blood Pressure 116/61 Laboratory Tests 01/21/17 07:15 WBC 5.0 Hgb 12.7 Hct 37.7 Plt Count 161 dressing c/d/i, calf soft, nt nvi a/p PT dvt ppx pain control d/c planning
--- NOTE | 2017-01-21 14:42 | PN ---
Progress Note (short form) - Note Progress Note: Breathing feels OK. No CP or SOB. POD #1 IM gamma nail. Intake & Output 01/18/17 01/19/17 01/20/17 01/21/17 23:59 23:59 23:59 23:59 Intake Total 2875 2750 3400 1050 Output Total 400 1500 430 600 Balance 2475 1250 2970 450 Last Vital Signs Temp Pulse Resp BP Pulse Ox 98.1 F 68 18 116/61 94 L 01/21/17 08:00 01/21/17 10:40 01/21/17 08:00 01/21/17 08:00 01/21/17 10:40 Active Medications Albuterol/Ipratropium (Duoneb -) 1 amp NEB Q6H PRN PRN Reason: SHORTNESS OF BREATH Amino Acids (Prosource No Carb Liquid Pkt) 30 ml PO BID@0800,1730 [facility] Last Admin: 01/21/17 08:38 Dose: 30 ml Atorvastatin Calcium (Lipitor -) 20 mg PO HS [facility] Last Admin: 01/20/17 21:08 Dose: 20 mg Docusate Sodium (Colace -) 100 mg PO Q12H PRN PRN Reason: CONSTIPATION Enoxaparin Sodium (Lovenox -) 40 mg SQ DAILY [facility] Last Admin: 01/21/17 09:11 Dose: 40 mg Hydromorphone HCl (Dilaudid Injection -) 2 mg IVPB Q6H PRN PRN Reason: PAIN Last Admin: 01/21/17 09:15 Dose: 2 mg Cefazolin Sodium 1 gm/ (Dextrose) 50 mls @ 100 mls/hr IVPB Q8H-IV [facility] Stop: 01/21/17 17:59 Last Admin: 01/21/17 09:11 Dose: 100 mls/hr Sodium Chloride (Normal Saline -) 1,000 mls @ 75 mls/hr IV ASDIR [facility] Last Admin: 01/21/17 09:33 Dose: 75 mls/hr Multivitamins/Minerals/Vitamin C (Tab-A-Vit -) 1 tab PO DAILY [facility] Last Admin: 01/21/17 09:11 Dose: 1 tab Nicotine (Nicoderm Patch -) 21 mg TD DAILY [facility] Last Admin: 01/21/17 09:11 Dose: 21 mg Oxycodone HCl (Roxicodone -) 15 mg PO Q6H PRN PRN Reason: PAIN Last Admin: 01/21/17 12:20 Dose: 15 mg Trazodone HCl (Desyrel -) 150 mg PO HS [facility] Last Admin: 01/20/17 21:08 Dose: 150 mg Constitutional: Yes: No acute distress Eyes: Yes: WNL HENT: Yes: WNL Neck: Yes: WNL Cardiovascular: Yes: WNL Respiratory: Yes: Clear, no wheezing Gastrointestinal: Yes: WNL Renal/: Yes: WNL Musculoskeletal: Yes: post-op Extremities: Yes: WNL Edema: No Peripheral Pulses WNL: Yes Integumentary: Yes: WNL Neurological: Yes: Non-focal Psychiatric: Yes: WNL Labs: Laboratory Results - last 24 hr 01/21/17 01/21/17 07:15 07:15 WBC 5.0 RBC 3.74 L Hgb 12.7 Hct 37.7 MCV 100.9 H MCH 33.9 H MCHC 33.6 RDW 13.2 Plt Count 161 MPV 9.1 Sodium 139 Potassium 3.5 Chloride 99 Carbon Dioxide 30 Anion Gap 10 BUN 7 Creatinine 0.6 L D Random Glucose 79 Calcium 8.1 L Problem List - Problems (1) Hip fracture Code(s): S72.009A - FRACTURE OF UNSP PART OF NECK OF UNSP FEMUR, INIT Qualifiers: Encounter type: initial encounter Fracture type: closed Laterality : right Qualified Code(s): S72.001A - Fracture of unspecified part of neck of right femur, initial encounter for closed fracture; S72.001A - Fracture of unspecified part of neck of right femur, initial encounter for closed fracture; S72.001A - Fracture of unspecified part of neck of right femur, initial encounter for closed fracture (2) Arterial insufficiency Code(s): I77.1 - STRICTURE OF ARTERY (3) COPD (chronic obstructive pulmonary disease) Code(s): J44.9 - CHRONIC OBSTRUCTIVE PULMONARY DISEASE, UNSPECIFIED Qualifiers : COPD type: unspecified COPD Qualified Code(s): J44.9 - Chronic obstructive pulmonary disease, unspecified; J44.9 - Chronic obstructive pulmonary disease, unspecified; J44.9 - Chronic obstructive pulmonary disease, unspecified; J44.9 - Chronic obstructive pulmonary disease, unspecified (4) Chronic obstructive bronchitis without exacerbation Code(s): J44.9 - CHRONIC OBSTRUCTIVE PULMONARY DISEASE, UNSPECIFIED (5) Lower extremity pain, left Code(s): M79.605 - PAIN IN LEFT LEG (6) Smoker Code(s): F17.200 - NICOTINE DEPENDENCE, UNSPECIFIED, UNCOMPLICATED (7) Pulmonary HTN Code(s): I27.20 - PULMONARY HYPERTENSION, UNSPECIFIED PLAN NASAL O2 PRN INHALED BRONCHODILATORS PRN DVT PROPHYLAXIS SMOKING CESSATION COUNSELED PFTS OUTPATIENT SCREENING CHEST CT AN OUTPATIENT DR MONSON
--- NOTE | 2017-01-21 15:12 | PN ---
Progress Note, Physician Chief Complaint: Hip pain No chest pain or new dyspnea s/p POD 1 History of Present Illness: his is a 61 year old male with an extensive smoking history. 2 1/2 PPD ~ 40 years, COPD, PAD, HTN, and known CAD. He 2 vessel CAD as per a cardiac cath at [facility] treated medically. On 01/16/17 while standing on one leg taking off his pants, he fell backwards and sustained a fracture of his right femoral neck. He denies chest pain, palpitations, and SOB. Echocardiogram 01/17/17: EF 69% Mild to moderate hypokinesis of the basal and mid anteroseptum Borderline RV enlargement with normal function Mild mitral thickening Mild TR RVSP 30 - 40 mmHg - Current Medication List Current Medications: Active Medications Albuterol/Ipratropium (Duoneb -) 1 amp NEB Q6H PRN PRN Reason: SHORTNESS OF BREATH Amino Acids (Prosource No Carb Liquid Pkt) 30 ml PO BID@0800,1730 [facility] Last Admin: 01/21/17 08:38 Dose: 30 ml Atorvastatin Calcium (Lipitor -) 20 mg PO HS [facility] Last Admin: 01/20/17 21:08 Dose: 20 mg Docusate Sodium (Colace -) 100 mg PO Q12H PRN PRN Reason: CONSTIPATION Enoxaparin Sodium (Lovenox -) 40 mg SQ DAILY [facility] Last Admin: 01/21/17 09:11 Dose: 40 mg Hydromorphone HCl (Dilaudid Injection -) 2 mg IVPB Q6H PRN PRN Reason: PAIN Last Admin: 01/21/17 09:15 Dose: 2 mg Cefazolin Sodium 1 gm/ (Dextrose) 50 mls @ 100 mls/hr IVPB Q8H-IV [facility] Stop: 01/21/17 17:59 Last Admin: 01/21/17 09:11 Dose: 100 mls/hr Sodium Chloride (Normal Saline -) 1,000 mls @ 75 mls/hr IV ASDIR [facility] Last Admin: 01/21/17 09:33 Dose: 75 mls/hr Multivitamins/Minerals/Vitamin C (Tab-A-Vit -) 1 tab PO DAILY [facility] Last Admin: 01/21/17 09:11 Dose: 1 tab Nicotine (Nicoderm Patch -) 21 mg TD DAILY [facility] Last Admin: 01/21/17 09:11 Dose: 21 mg Oxycodone HCl (Roxicodone -) 15 mg PO Q6H PRN PRN Reason: PAIN Last Admin: 01/21/17 12:20 Dose: 15 mg Trazodone HCl (Desyrel -) 150 mg PO HS [facility] Last Admin: 01/20/17 21:08 Dose: 150 mg - Objective Vital Signs: Vital Signs Temperature 98.1 F 01/21/17 08:00 Pulse Rate 68 01/21/17 10:40 Respiratory Rate 18 01/21/17 08:00 Blood Pressure 116/61 01/21/17 08:00 O2 Sat by Pulse Oximetry (%) 94 L 01/21/17 10:40 Constitutional: Yes: No Distress Cardiovascular: Yes: Regular Rate and Rhythm, S1, S2. No: JVD, Murmur Respiratory: Yes: CTA Bilaterally Gastrointestinal: Yes: Soft Edema: No Labs: CBC, BMP 01/21/17 07:15 01/21/17 07:15 INR, PTT INR 1.10 (0.82-1.09) 01/20/17 07:40 Assessment/Plan 61 year old male with a pmhx of tobacco use, copd, pad, htn, and CAD who presented with hip fracture after a fall Echocardiogram 01/17/17: EF 69% Mild to moderate hypokinesis of the basal and mid anteroseptum Borderline RV enlargement with normal function Mild mitral thickening Mild TR RVSP 30 - 40 mmHg 1) CAD -tolerated surgery No chest pain or new dyspnea Echocardiogram with Normal LV systolic function and no significant valve disease -On statin Restart aspirin when ok with orthopaedic team. Was not on bblocker as outpatient likely due to low normal bp or copd. Should follow up with cardiology as an outpatient. Please call back with any questions.
[2017-01-21] MEDS: DOCUSATE SODIUM 100 MG CAPSULE (FP) PO PRN (18:22)
[2017-01-21] MEDS: ATORVASTATIN CA 20 MG TABLET (FP) PO SCH (21:16)
[2017-01-21] MEDS: traZODone HCL 150 MG TABLET PO SCH (21:16)
[2017-01-22] MEDS: oxyCODONE HCL 5 MG TABLET PO PRN ×3 (00:48→12:32)
[2017-01-22] MEDS: SODIUM CHLORIDE 1,000 ML IV SCH (01:44)
[2017-01-22] MEDS: HYDROmorphone HCL CARPU-JECT 2 MG/1 ML DISP.SYRIN IVPB PRN ×2 (03:17→09:22)
[2017-01-22 07:21] LABS: MCH 34.1 pg (25.7-33.7); MCHC 33.9 g/dl (32.0-35.9); MEAN CELL VOLUME 100.5 fl (80-96); MEAN PLT VOLUME 8.8 fl (7.5-11.1); PLATELET COUNT 178 K/MM3 (134-434); RDW 13.4 % (11.9-15.9); WHITE BLOOD COUNT 4.5 K/mm3 (4.0-10.0)
[2017-01-22 08:19] LABS: ANION GAP 9 (8-16); CO2 32 mmol/L (21-32); CREATININE 0.5 mg/dL (0.7-1.3); GLUCOSE,RANDOM 89 mg/dL (74-106)
[2017-01-22] MEDS: NICOTINE 21 MG/24 HOURS TOPICAL PATCH TD SCH (09:23)
[2017-01-22] MEDS: MULTIVITAMINS (DAILY MVI) TABLET (FP) PO SCH (09:23)
[2017-01-22] MEDS: DOCUSATE SODIUM 100 MG CAPSULE (FP) PO PRN (09:23)
[2017-01-22] MEDS: AMINO ACIDS/PROTEIN HYDROLYS 30 ML LIQUID.PKT PO SCH (09:25)
[2017-01-22] MEDS: ENOXAPARIN NA (PORCINE) 40 MG/0.4 ML DISP.SYRIN SQ SCH (09:25)
--- NOTE | 2017-01-22 11:26 | DS ---
Physical Examination Vital Signs: Vital Signs Temperature 98.8 F 01/22/17 06:00 Pulse Rate 80 01/22/17 06:00 Respiratory Rate 20 01/22/17 06:00 Blood Pressure 117/65 01/22/17 06:00 O2 Sat by Pulse Oximetry (%) 97 01/21/17 20:27 Findings/Remarks: AWAKE, ALERT REFUSING SNF WANTS TO GO HOME WITH AID Constitutional: Yes: Mild Distress Eyes: Yes: WNL HENT: Yes: WNL Neck: Yes: WNL Cardiovascular: Yes: WNL Respiratory: Yes: WNL Gastrointestinal: Yes: WNL Musculoskeletal: Yes: Back Pain, Joint Stiffness, Muscle Weakness Extremities: Yes: Other Edema: No Peripheral Pulses WNL: Yes Integumentary: Yes: WNL Wound/Incision: Yes: Dressing Dry and Intact Neurological: Yes: WNL ...Motor Strength: RLE Psychiatric: Yes: WNL Labs: CBC, BMP 01/22/17 06:20 01/22/17 06:20 Discharge Summary Reason For Visit: FRACTURE OF HIP Current Active Problems Hip fracture (Acute) Pulmonary HTN (Acute) Procedures: Principal: RIGHT HIP SURGICAL REPAIR Other Procedures: LABS/CT SCAN Hospital Course: ADMITTED FOR RIGHT HIP FRACTURE, SURGICALLY REPAIRED WITH GAMMA NAIL INSERTION, COPD STABLE ON NEBS. REFUSING SNF, WANTS TO GO HOME WITH [facility] Condition: Fair - Instructions Diet, Activity, Other Instructions: SEE DR WINCHESTER FOR OUT PATIENT FOLLOW UP DR FREEMAN IN 2 WEEKS PAIN CONTROL WITH DR LING Referrals: Tom Freeman MD [Staff Physician] - Disposition: [facility]/HOME HEALTH CARE - Home Medications Comprehensive Discharge Medication List: Ambulatory Orders Aspirin Coated [Ecotrin -] 81 mg PO DAILY tablet.ec 05/03/16 Clopidogrel Bisulfate [Plavix -] 75 mg PO DAILY #30 tablet 05/03/16 Albuterol 2.5/Ipratropium 0.5 [Duoneb -] 1 amp NEB Q6H PRN #120 amp 01/22/17 Atorvastatin Ca [Lipitor] 20 mg PO HS #30 tablet [facility]D 1 01/22/17 Docusate Sodium [Colace -] 100 mg PO Q12H PRN #60 cap 01/22/17 Multivitamins [Multivit ([facility] Formulary)] 1 tab PO DAILY #30 tab 01/22/17 Nicotine Patch [Nicoderm Patch -] 21 mg TD DAILY #30 patch 01/22/17 Oxycodone HCl/Acetaminophen [Oxycodone-Acetaminophen 5-325] 1 each PO QID PRN # 0 tab 01/22/17 Trazodone HCl [Desyrel -] 150 mg PO HS #30 tab 01/22/17
--- NOTE | 2017-01-22 12:00 | PN ---
Progress Note (short form) - Note Progress Note: Pt seen and examined. Case discussed with Dr Tompkins. Pt looks good, ready for DC home. All questions addressed. He will f/u in the office with Dr Mora in 1 week
--- NOTE | 2017-01-22 12:40 | PN ---
Progress Note (short form) - Note Progress Note: PULMONARY 2 1/2 PACK/DAY SMOKER VSS/AFEBRIEL PALE/ANICTERIC DIMINISHED B/L BREATH SOUNDS S1S2 BS+ S/P RIGHT HIP FX/REPAIR LABS/MEDS/NOTES/IMAGING REVIEWED (1) Hip fracture Code(s): S72.009A - FRACTURE OF UNSP PART OF NECK OF UNSP FEMUR, INIT Qualifiers: Encounter type: initial encounter Fracture type: closed Laterality : right Qualified Code(s): S72.001A - Fracture of unspecified part of neck of right femur, initial encounter for closed fracture; S72.001A - Fracture of unspecified part of neck of right femur, initial encounter for closed fracture; S72.001A - Fracture of unspecified part of neck of right femur, initial encounter for closed fracture (2) Arterial insufficiency Code(s): I77.1 - STRICTURE OF ARTERY (3) COPD (chronic obstructive pulmonary disease) Code(s): J44.9 - CHRONIC OBSTRUCTIVE PULMONARY DISEASE, UNSPECIFIED Qualifiers : COPD type: unspecified COPD Qualified Code(s): J44.9 - Chronic obstructive pulmonary disease, unspecified; J44.9 - Chronic obstructive pulmonary disease, unspecified; J44.9 - Chronic obstructive pulmonary disease, unspecified; J44.9 - Chronic obstructive pulmonary disease, unspecified (4) Chronic obstructive bronchitis without exacerbation Code(s): J44.9 - CHRONIC OBSTRUCTIVE PULMONARY DISEASE, UNSPECIFIED (5) Lower extremity pain, left Code(s): M79.605 - PAIN IN LEFT LEG (6) Smoker Code(s): F17.200 - NICOTINE DEPENDENCE, UNSPECIFIED, UNCOMPLICATED (7) Pulmonary HTN Code(s): I27.20 - PULMONARY HYPERTENSION, UNSPECIFIED PLAN NASAL O2 PRN INHALED BRONCHODILATORS PRN DVT PROPHYLAXIS SMOKING CESSATION COUNSELED PFTS OUTPATIENT SCREENING CHEST CT AN OUTPATIENT Mehreen BARRAGAN MD
[2017-01-22 14:14] VITALS: BP 102/64; PULSE 87; TEMP 98.2
--- NOTE | 2017-01-23 11:49 | PN ---
Progress Note (short form) - Note Progress Note: diagnosis addendum: i agree patient with bmi of 14 diagnosis is severe malnutrition bmi 14 Problem List - Problems (1) Hip fracture Code(s): S72.009A - FRACTURE OF UNSP PART OF NECK OF UNSP FEMUR, INIT Qualifiers: Encounter type: initial encounter Fracture type: closed Laterality : right Qualified Code(s): S72.001A - Fracture of unspecified part of neck of right femur, initial encounter for closed fracture; S72.001A - Fracture of unspecified part of neck of right femur, initial encounter for closed fracture; S72.001A - Fracture of unspecified part of neck of right femur, initial encounter for closed fracture (2) Arterial insufficiency Code(s): I77.1 - STRICTURE OF ARTERY (3) COPD (chronic obstructive pulmonary disease) Code(s): J44.9 - CHRONIC OBSTRUCTIVE PULMONARY DISEASE, UNSPECIFIED Qualifiers : COPD type: unspecified COPD Qualified Code(s): J44.9 - Chronic obstructive pulmonary disease, unspecified; J44.9 - Chronic obstructive pulmonary disease, unspecified; J44.9 - Chronic obstructive pulmonary disease, unspecified; J44.9 - Chronic obstructive pulmonary disease, unspecified (4) Smoker Code(s): F17.200 - NICOTINE DEPENDENCE, UNSPECIFIED, UNCOMPLICATED
== END 2017-01-22 15:15 | disposition home health service (06) | DRG 308 ==
LOC: JER 12:46 → JERBED 19:04 → J6S 20:26
PROVIDERS: ADMIT Family Medicine; ATTEND Family Medicine
PROC: 0QS606Z Reposition Right Upper Femur with Intramedullary Internal Fixation Device, Open Approach (ICD-10-PCS; principal; 2017-01-20 14:30)
DX: S72.141A Displaced intertrochanteric fracture of right femur, initial encounter for closed fracture (principal); W19.XXXA Unspecified fall, initial encounter; Y93.9 Activity, unspecified; Y92.89 Other specified places as the place of occurrence of the external cause; Y99.9 Unspecified external cause status; J44.9 Chronic obstructive pulmonary disease, unspecified; I27.20 Pulmonary hypertension, unspecified; I25.10 Atherosclerotic heart disease of native coronary artery without angina pectoris; I77.1 Stricture of artery; I73.9 Peripheral vascular disease, unspecified; Z87.891 Personal history of nicotine dependence; E43 Unspecified severe protein-calorie malnutrition; Z68.1 Body mass index [BMI] 19.9 or less, adult
CPT/HCPCS: 36415; 71010-TC; 73523-TC; 76000-TC; 80048; 80053; 81003; 81015; 85025; 85027; 85610; 86850; 86900; 86901; 93005; 93010; 93306-TC; 94760; 97116-GP; 97162-GP; 99283-25